=== PATIENT | female | born 1955 | race Caucasian/White ===

== ENCOUNTER 2020-05-15 12:51 | Inpatient (IN) | payer BC ==
[~2020-05-15] VITALS: Ht 160 cm; Wt 56.7 kg
[2020-05-15 13:42] VITALS: BP 131/62
[2020-05-15] MEDS ORDERED: Omnipaque-300 100ml vial INJ PRN (13:45)
--- NOTE | 2020-05-15 14:00 | NUR ---
ED Nurse Note: Pt walked into ED for lower abdominal pain for 2 weeks. Pt denies diarrhea, n&V. She is alert and ox4, ambulatory, set up on monitor. IV established.
--- NOTE | 2020-05-15 14:12 | Emergency Room Report ---
History of Present Illness General Chief Complaint: Abdominal Pain Source: Patient (Tiff Gallardo) Present Illness HPI 65 YO female presents to the ED c/o 06/05 in severity lower abdominal pain, bloating and tenderness with urgency x 2 weeks. pt. reports prior to onset she had been having diarrhea since . Pt. states she was seen by a GI specialist who did lab work and ultimately dx'd her with a UTI and placed her on 10 day course of Cipro. Pt. reports only finishing 8 days as when she followed up with urology they reported that the test was inconclusive and most likely contamination. Patient reports that she also has been receiving Botox injections in the bladder every 4 to 5 weeks. Patient states that she has an appointment for another injection next week. Patient denies dysuria. Patient reports she typically begins having urinary urgency. Patient denies fevers or chills, nausea or vomiting. She denies having watery loose bowel movements. Patient states that after taking Cipro her diarrhea did improve however she states last 2 days she has noticed that her stools been less formed. No other aggravating or relieving factors. Denies blood in the stool or black tarry stools. Pt. reports she was seen by her PCP today and instructed to come to ED for imaging as imaging was never performed for her current symptoms. She is also taking immodium PRN and hyoscyamine. (Tiff Gallardo) Allergies: Coded Allergies: No Known Allergies (Unverified , 05/15/20) COVID-19 Screening Contact w/high risk pt: No Recent Travel to affected area: No Experienced COVID-19 symptoms?: No COVID-19 Testing performed INSPECTOR AND CLERK: No (Tiff Gallardo) Patient History Past Medical History: see triage record Past Surgical History: none Now: No Reviewed Nursing Documentation: PMH: Agreed; PSxH: Agreed (Tiff Gallardo) Nursing Documentation-PMH Past Medical History: No History, Except For (Tiff Gallardo) Review of Systems All Other Systems: negative except mentioned in HPI (Tiff Gallardo) Physical Exam Vital Signs Date Time Temp Pulse Resp B/P (MAP) Pulse Ox O2 Delivery O2 Flow Rate FiO2 05/15/20 12:53 98.1 82 17 131/62 (85) 98 Room Air Sp02 EP Interpretation: reviewed, normal General Appearance: no apparent distress, alert, GCS 15, non-toxic Head: normocephalic, atraumatic Eyes: bilateral eye normal inspection, bilateral eye PERRL ENT: hearing grossly normal, normal voice Neck: full range of motion Respiratory: chest non-tender, lungs clear, normal breath sounds, speaking full sentences Cardiovascular #1: regular rate, rhythm Gastrointestinal: normal bowel sounds, soft, other - Lower abdomen is palpable tense compared to upper quadrants. no peritonitis. mild tenderness to deep palpation- diffusely in lower abdomen but primarily midline. Rectal: deferred Genitourinary: normal inspection, no CVA tenderness Musculoskeletal: back normal, normal range of motion, gait/station normal, non- tender Neurologic: alert, motor strength/tone normal, oriented x3, sensory intact, responsive, speech normal Psychiatric: judgement/insight normal Skin: normal color (Tiff Gallardo) Medical Decision Making PA Attestation Dr. Waldrop is my supervising Physician whom patient management has been discussed with. (Tiff Gallardo) Diagnostic Impression: Primary Impression: Abdominal mass Qualified Codes: R19.09 - Other intra-abdominal and pelvic swelling, mass and lump Additional Impression: UTI (urinary tract infection) Qualified Codes: N30.01 - Acute cystitis with hematuria ER Course 65 YO female presents to the ED c/o 06/05 in severity lower abdominal pain, bloating and tenderness with urgency x 2 weeks. pt. reports prior to onset she had been having diarrhea since . Pt. states she was seen by a GI specialist who did lab work and ultimately dx'd her with a UTI and placed her on 10 day course of Cipro. Pt. reports only finishing 8 days as when she followed up with urology they reported that the test was inconclusive and most likely contamination. Patient reports that she also has been receiving Botox injections in the bladder every 4 to 5 weeks. Patient states that she has an appointment for another injection next week. Patient denies dysuria. Patient reports she typically begins having urinary urgency. Patient denies fevers or chills, nausea or vomiting. She denies having watery loose bowel movements. Patient states that after taking Cipro her diarrhea did improve however she states last 2 days she has noticed that her stools been less formed. No other aggravating or relieving factors. Denies blood in the stool or black tarry stools. Pt. reports she was seen by her PCP today and instructed to come to ED for imaging as imaging was never performed for her current symptoms. She is also taking immodium PRN and hyoscyamine. Ddx considered but are not limited to Diverticulitis, acute appendicitis, diarrhea, UC, PUD, GE, pancreatitis, gallstone, ovarian torsion, fibroids , Malignancy, PID tubo-ovarian abscess. Vital signs: are WNL, pt. is afebrile H&PE are most consistent with possible UTI. PT. with abnormal physical exam of the abdomen. non-toxic in appearance. NAD. ORDERS: -CBC: WBC 12.1 - CMP: Cr 1.5 with BUN 23 - LIPASE: WNL -CRP: 4.7 ( pt. previously was 20 on outpatient lab work done by her GI) -UA: 4+ blood, 3+ leuks, TNTC WBC, with equal parts few bacteria and squamous cells. ED INTERVENTIONS: -1 Liter NS DISPOSITION: at this time pt. will be admitted to Dr. Mathis for complicated UTI and new abnormal findings of multiple intra-abdominal masses . Dr. Mathis agreed to admit the pt. and to continue pt. care management. Labs Test 05/15/20 13:50 White Blood Count 12.1 K/UL (4.8-10.8) Red Blood Count 3.97 M/UL (4.20-5.40) Hemoglobin 11.4 G/DL (12.0-16.0) Hematocrit 37.1 % (37.0-47.0) Mean Corpuscular Volume 93 FL (80-99) Mean Corpuscular Hemoglobin 28.8 PG (27.0-31.0) Mean Corpuscular Hemoglobin Concent 30.8 G/DL (32.0-36.0) Red Cell Distribution Width 12.0 % (11.6-14.8) Platelet Count 607 K/UL (150-450) Mean Platelet Volume 5.0 FL (6.5-10.1) Neutrophils (%) (Auto) 81.2 % (45.0-75.0) Lymphocytes (%) (Auto) 11.8 % (20.0-45.0) Monocytes (%) (Auto) 5.5 % (1.0-10.0) Eosinophils (%) (Auto) 0.9 % (0.0-3.0) Basophils (%) (Auto) 0.5 % (0.0-2.0) Urine Color Pale yellow Urine Appearance Slightly cloudy Urine pH 5 (4.5-8.0) Urine Specific [place] 1.015 (1.005-1.035) Urine Protein 3+ (NEGATIVE) Urine Glucose (UA) Negative (NEGATIVE) Urine Ketones Negative (NEGATIVE) Urine Blood 4+ (NEGATIVE) Urine Nitrite Negative (NEGATIVE) Urine Bilirubin Negative (NEGATIVE) Urine Urobilinogen Normal MG/DL (0.0-1.0) Urine Leukocyte Esterase 3+ (NEGATIVE) Urine RBC 5-10 /HPF (0 - 2) Urine WBC Tntc /HPF (0 - 2) Urine Squamous Epithelial Cells Few /LPF (NONE/OCC) Urine Bacteria Few /HPF (NONE) Sodium Level 137 MMOL/L (136-145) Potassium Level 3.9 MMOL/L (3.5-5.1) Chloride Level 102 MMOL/L (98-107) Carbon Dioxide Level 25 MMOL/L (21-32) Anion Gap 10 mmol/L (5-15) Blood Urea Nitrogen 23 mg/dL (7-18) Creatinine 1.5 MG/DL (0.55-1.30) Estimat Glomerular Filtration Rate 34.7 mL/min (>60) Glucose Level 86 MG/DL (74-106) Calcium Level 8.8 MG/DL (8.5-10.1) Total Bilirubin 0.2 MG/DL (0.2-1.0) Aspartate Amino Transf (AST/SGOT) 26 U/L (15-37) Alanine Aminotransferase (ALT/SGPT) 20 U/L (12-78) Alkaline Phosphatase 259 U/L (46-116) C-Reactive Protein, Quantitative 4.7 mg/dL (0.00-0.90) Total Protein 7.5 G/DL (6.4-8.2) Albumin 2.7 G/DL (3.4-5.0) Globulin 4.8 g/dL Albumin/Globulin Ratio 0.6 (1.0-2.7) Lipase 246 U/L (73-393) (Tiff Gallardo) ER Course Patient presented for abdominal pain. Patient had some CT findings concerning for possible malignancy. Patient has had some recent weight loss but has had prior history of total abdominal hysterectomy as well as ovarian removal. This occurred in 2002. Patient recently seen GI as well as urology. Patient is followed by Dr. Maya Alcantara. Due to complicated urinary tract infection patient will be admitted for further evaluation and IV antibiotics. Patient was discussed with Dr. Butler who agreed to admit the patient. Labs Test 05/15/20 13:50 White Blood Count 12.1 K/UL (4.8-10.8) Red Blood Count 3.97 M/UL (4.20-5.40) Hemoglobin 11.4 G/DL (12.0-16.0) Hematocrit 37.1 % (37.0-47.0) Mean Corpuscular Volume 93 FL (80-99) Mean Corpuscular Hemoglobin 28.8 PG (27.0-31.0) Mean Corpuscular Hemoglobin Concent 30.8 G/DL (32.0-36.0) Red Cell Distribution Width 12.0 % (11.6-14.8) Platelet Count 607 K/UL (150-450) Mean Platelet Volume 5.0 FL (6.5-10.1) Neutrophils (%) (Auto) 81.2 % (45.0-75.0) Lymphocytes (%) (Auto) 11.8 % (20.0-45.0) Monocytes (%) (Auto) 5.5 % (1.0-10.0) Eosinophils (%) (Auto) 0.9 % (0.0-3.0) Basophils (%) (Auto) 0.5 % (0.0-2.0) Urine Color Pale yellow Urine Appearance Slightly cloudy Urine pH 5 (4.5-8.0) Urine Specific [place] 1.015 (1.005-1.035) Urine Protein 3+ (NEGATIVE) Urine Glucose (UA) Negative (NEGATIVE) Urine Ketones Negative (NEGATIVE) Urine Blood 4+ (NEGATIVE) Urine Nitrite Negative (NEGATIVE) Urine Bilirubin Negative (NEGATIVE) Urine Urobilinogen Normal MG/DL (0.0-1.0) Urine Leukocyte Esterase 3+ (NEGATIVE) Urine RBC 5-10 /HPF (0 - 2) Urine WBC Tntc /HPF (0 - 2) Urine Squamous Epithelial Cells Few /LPF (NONE/OCC) Urine Bacteria Few /HPF (NONE) Sodium Level 137 MMOL/L (136-145) Potassium Level 3.9 MMOL/L (3.5-5.1) Chloride Level 102 MMOL/L (98-107) Carbon Dioxide Level 25 MMOL/L (21-32) Anion Gap 10 mmol/L (5-15) Blood Urea Nitrogen 23 mg/dL (7-18) Creatinine 1.5 MG/DL (0.55-1.30) Estimat Glomerular Filtration Rate 34.7 mL/min (>60) Glucose Level 86 MG/DL (74-106) Calcium Level 8.8 MG/DL (8.5-10.1) Total Bilirubin 0.2 MG/DL (0.2-1.0) Aspartate Amino Transf (AST/SGOT) 26 U/L (15-37) Alanine Aminotransferase (ALT/SGPT) 20 U/L (12-78) Alkaline Phosphatase 259 U/L (46-116) C-Reactive Protein, Quantitative 4.7 mg/dL (0.00-0.90) Total Protein 7.5 G/DL (6.4-8.2) Albumin 2.7 G/DL (3.4-5.0) Globulin 4.8 g/dL Albumin/Globulin Ratio 0.6 (1.0-2.7) Lipase 246 U/L (73-393) (Hilario Pedro MD) CT/MRI/US Diagnostic Results CT/MRI/US Diagnostic Results : Imaging Test Ordered: - CT Abdomen and Pelvis w. Contrast Impression " IMPRESSION: * Calcified masses within the pelvis as well as a calcified mass within the mid abdomen. Malignancy not excluded. Consider possible calcified peritoneal metastases (consider possible ovarian cancer metastases although additional etiologies to be considered). Correlation with clinical history and follow-up recommended. Some lesions may be amenable to percutaneous biopsy/sampling. * Status post hysterectomy. * Bladder wall thickening which may be related to underdistention or cystitis. Punctate focus of gas within the bladder. Possibility of fistulous connection to the bladder not excluded. * Mild left hydronephrosis without urinary tract stone. This is likely related to degree of left ureteral obstruction from the above-described calcified pelvic masses. * Low-attenuation liver lesions with imaging findings suggesting cysts or hemangiomas. Further characterization with ultrasound and/or MRI recommended given above-described findings concerning for malignancy. * 8 mm indeterminate left adrenal nodule." Per official radiology report- Please see report for specific details. (Tiff Gallardo) Last Vital Signs Date Time Temp Pulse Resp B/P (MAP) Pulse Ox O2 Delivery O2 Flow Rate FiO2 05/15/20 13:42 98.1 17 131/62 98 Room Air 05/15/20 13:42 82 (Tiff Gallardo) Disposition: ADMITTED INPATIENT Condition: Serious Tiff Gallardo May 15, 2020 14:12 Hilario Pedro MD May 15, 2020 18:53
[2020-05-15 14:21] LABS: BASOPHILS % (AUTO) 0.5 % (0.0-2.0); EOSINOPHILS % (AUTO) 0.9 % (0.0-3.0); HEMATOCRIT 37.1 % (37.0-47.0); HEMOGLOBIN 11.4 G/DL (12.0-16.0); LYMPHOCYTES % (AUTO) 11.8 % (20.0-45.0); MEAN CORPUSCULAR VOLUME 93 FL (80-99); MONOCYTES % (AUTO) 5.5 % (1.0-10.0); NEUTROPHILS % (AUTO) 81.2 % (45.0-75.0); PLATELET COUNT 607 K/UL (150-450); RED BLOOD COUNT 3.97 M/UL (4.20-5.40); WHITE BLOOD COUNT 12.1 K/UL (4.8-10.8)
[2020-05-15 14:24] LABS: APPEARANCE,URINE SLIGHTLY CLOUDY; BILIRUBIN, URINE NEGATIVE (NEGATIVE); COLOR,URINE PALE YELLOW; GLUCOSE, URINE (UA) NEGATIVE (NEGATIVE); KETONES,URINE NEGATIVE (NEGATIVE); LEUKOCYTE ESTERASE ,URINE 3+ (NEGATIVE); NITRITE,URINE NEGATIVE (NEGATIVE); PH,URINE 5 (4.5-8.0); PROTEIN,URINE 3+ (NEGATIVE); UROBILINOGEN,URINE NORMAL MG/DL (0.0-1.0)
[2020-05-15 14:38] LABS: ANION GAP 10 mmol/L (5-15); BLOOD UREA NITROGEN 23 mg/dL (7-18); CALCIUM 8.8 MG/DL (8.5-10.1); CARBON DIOXIDE 25 MMOL/L (21-32); CHLORIDE 102 MMOL/L (98-107); CREATININE 1.5 MG/DL (0.55-1.30); POTASSIUM 3.9 MMOL/L (3.5-5.1); SODIUM 137 MMOL/L (136-145)
[2020-05-15 14:54] LABS: ALANINE AMINOTRANSFERASE 20 U/L (12-78); ALBUMIN 2.7 G/DL (3.4-5.0); ALBUMIN/GLOBULIN RATIO 0.6 (1.0-2.7); ALKALINE PHOSPHATASE 259 U/L (46-116); ASPARTATE AMINO TRANSFERASE 26 U/L (15-37); BILIRUBIN,TOTAL 0.2 MG/DL (0.2-1.0)
[2020-05-15 15:42] VITALS: BP 128/65
--- NOTE | 2020-05-15 16:04 | NUR ---
HAND-OFF: Report given to Sonya Muniz RN.
--- NOTE | 2020-05-15 16:15 | NUR ---
ED Nurse Note: received report from AMIE Guerrero. Pt now placed on OB room. Pt is AOx4, awake, alert, VSS, on RA, NAD noted.
--- NOTE | 2020-05-15 17:15 | NUR ---
ED Nurse Note: offered snacks as requested by pt, PEDROD aware.
--- NOTE | 2020-05-15 17:21 | Diagnostic Imaging Report ---
Indication: Abdominal pain Technique: CT of the abdomen and pelvis utilizing automated exposure control with intravenous contrast. Venous scanning performed. Axial, sagittal and coronal reformats presented. CT dose: Total DLP 210.3 mGycm; CTDI vol 4.1 mGy Comparison: None Findings: There is dependent atelectasis noted in the lung bases. Heart is normal in size. There is no pericardial effusion. Partially imaged breast tissue is grossly symmetric. Hepatic contour is smooth. There is a 2 cm low-attenuation lesion in the right hepatic lobe with peripheral nodular enhancement most likely representing a hemangioma. A 1.4 cm low-attenuation lesion is noted at the left hepatic lobe which may represent a cyst versus hemangioma. Hepatic contour is smooth. Hepatic veins and portal veins appear patent. There are no CT evident gallstones or pericholecystic inflammatory changes. No biliary ductal dilatation. Spleen unremarkable in appearance. There is a 8mm indeterminate left adrenal nodule. Right kidney is malrotated. There is mild left-sided hydronephrosis without definitive obstructing stone. There is bladder wall thickening. Patient appears to be status post hysterectomy. There is marked abnormality in the pelvis with multiple confluent calcified masses, some which contain internal low attenuation components. Additionally there is a calcified extra luminal mass in the central abdomen, just above the level of the umbilicus, posterior and slightly inferior to the transverse colon which measures possibly 5 x 3.8 cm (axial image #42). There is no evidence of small bowel obstruction. No free intraperitoneal air. There is thickening of the wall the bladder with some punctate foci of gas within the bladder which may related to infection or potential fistulous connection the bladder. The abdominal aorta is normal in caliber. Some small mesenteric and retroperitoneal lymph nodes are noted. Nonspecific as to etiology. There is scoliosis and degenerative changes of the spine. No acute fracture identified. No destructive bone lesion. IMPRESSION: * Calcified masses within the pelvis as well as a calcified mass within the mid abdomen. Malignancy not excluded. Consider possible calcified peritoneal metastases (consider possible ovarian cancer metastases although additional etiologies to be considered). Correlation with clinical history and follow-up recommended. Some lesions may be amenable to percutaneous biopsy/sampling. * Status post hysterectomy. * Bladder wall thickening which may be related to underdistention or cystitis. Punctate focus of gas within the bladder. Possibility of fistulous connection to the bladder not excluded. * Mild left hydronephrosis without urinary tract stone. This is likely related to degree of left ureteral obstruction from the above-described calcified pelvic masses. * Low-attenuation liver lesions with imaging findings suggesting cysts or hemangiomas. Further characterization with ultrasound and/or MRI recommended given above-described findings concerning for malignancy. * 8 mm indeterminate left adrenal nodule. Additional findings as above. Salient findings discussed with treating ER clinician Sami. The CT scanner at [facility] is accredited by the [employer] and the scans are performed using protocols designed to limit radiation exposure to as low as reasonably achievable to attain images of sufficient resolution adequate for diagnostic evaluation.
[2020-05-15] MEDS ORDERED: cefTRIAXone 1 GM in NS 55 ML IVPB ONE (18:30)
--- NOTE | 2020-05-15 19:15 | NUR ---
ED Nurse Note: report given to AMIE Macdonald for continuity of care.
[2020-05-15] MEDS ORDERED: Morphine Sulfate 2mg/ml Inj(IV/IM USE ONLY) IVP ONE (20:30)
[2020-05-15] MEDS ORDERED: Ketorolac 30mg Inj IV ONE (20:45)
[2020-05-15] MEDS ORDERED: BUPROPION XL300 M1 PO (21:22)
[2020-05-15] MEDS ORDERED: ADDERAL20 MG ORAL (21:22)
[2020-05-15] MEDS ORDERED: LEXAPRO10 MG ORAL (21:22)
[2020-05-15] MEDS ORDERED: PREMARIN1.25 MG PO (21:22)
--- NOTE | 2020-05-15 21:40 | NUR ---
ED Nurse Note: Patient was admited to [facility] due to severe UTI with complications. Patient was transfered to the unit via gurney, with all belongings. Patient AAO x4, VSS at this time, pt has IV access on right forearm 20ga, saline lock.
--- NOTE | 2020-05-15 22:45 | NUR ---
NURSE NOTES: Received report from Kassy HOLLOWAY at ER. The patient is alert and oriented x4, a 65 yrs old female who came from home after having lower abdominal pain for 2 weeks and could not bear it any more. The Resp is even and unlabored and the bilateral lung sounds are all clear on auscultation. she is a good historian and can tell everything about herself. Presently she does not seem to be in any distress due to the fact that she previously received her pain medication. She will need minimal help with her ADL's. She can ambulate with minimal assistance needed. Skin is intact and warm to touch. SHE has a right fore arm 20g that was flushed with NS and is patent. Call light within reach, bed in low level and bed alarm was on . will continue to monitor
[2020-05-16] VITALS: BP 127/80
--- NOTE | 2020-05-16 00:39 | NUR ---
NURSE NOTES: Dr. Butler has been called 3 times and a text message was left on his phone together with voice messages concerning the admission status and Meds reconciliation. still awaiting call back.The patient is presently sleeping and does not seen to be in any distress with Resp even and unlabored. will continue to monitor
[2020-05-16] MEDS ORDERED: Morphine Sulfate 2mg/ml Inj(IV/IM USE ONLY) IVP PRN (02:45)
[2020-05-16] MEDS ORDERED: Ketorolac 30mg Inj IM PRN (03:00)
--- NOTE | 2020-05-16 03:01 | NUR ---
NURSE NOTES: Received a call from Dr. Butler, admission orders were all received and executed. The patient is alert and stable. still sleeping and does not appear to be in any distress at this time. will continue to monitor
[2020-05-16 04:00] VITALS: BP 114/65
[2020-05-16 07:17] LABS: HEMATOCRIT 33.6 % (37.0-47.0); HEMOGLOBIN 10.7 G/DL (12.0-16.0); MEAN CORPUSCULAR VOLUME 91 FL (80-99); PLATELET COUNT 550 K/UL (150-450); WHITE BLOOD COUNT 16.6 K/UL (4.8-10.8)
--- NOTE | 2020-05-16 07:20 | NUR ---
HAND-OFF: Report given to Lorrie HOLLOWAY.
--- NOTE | 2020-05-16 07:24 | NUR ---
NURSE NOTES: Received report from AMIE Rojas. Patient awake, alert, and sitting ip in bed eating. On room air, no signs of distress or labored breathing. IV intact, patent, and saline locked. Bed in lowest position with call light in reach. Will continue with plan of care.
--- NOTE | 2020-05-16 07:35 | NUR ---
HAND-OFF: Report given to Minsu, RR. Patient stable.
[2020-05-16 07:55] LABS: ALANINE AMINOTRANSFERASE 18 U/L (12-78); ALBUMIN 2.5 G/DL (3.4-5.0); ALBUMIN/GLOBULIN RATIO 0.6 (1.0-2.7); ALKALINE PHOSPHATASE 225 U/L (46-116); ANION GAP 8 mmol/L (5-15); ASPARTATE AMINO TRANSFERASE 26 U/L (15-37); BILIRUBIN,TOTAL 0.2 MG/DL (0.2-1.0); BLOOD UREA NITROGEN 24 mg/dL (7-18); CALCIUM 8.4 MG/DL (8.5-10.1); CARBON DIOXIDE 25 MMOL/L (21-32); CHLORIDE 102 MMOL/L (98-107); CREATININE 1.5 MG/DL (0.55-1.30); PHOSPHORUS 3.5 MG/DL (2.5-4.9); POTASSIUM 4.9 MMOL/L (3.5-5.1); SODIUM 135 MMOL/L (136-145)
[2020-05-16 08:00] VITALS: BP 129/73
[2020-05-16] MEDS: Enoxaparin 40mg Inj SUBQ SCH (08:56)
--- NOTE | 2020-05-16 09:32 | History & Physical ---
History and Physical History & Physicial seen and examined. Dictation completed on 930 hours Jose Armando Butler MD May 16, 2020 09:32
--- NOTE | 2020-05-16 09:40 | General Progress Note ---
Assessment/Plan Assessment/Plan: Full Dictation in progress 1- SIRS 2- UTI 3- Cystitis 4- Abnormal pelvic Mass Plan: start empirical abx Pending culture Oncology- ID- nephro Subjective Allergies: Coded Allergies: No Known Allergies (Unverified , 05/15/20) Objective Last 24 Hour Vital Signs Date Time Temp Pulse Resp B/P (MAP) Pulse Ox O2 Delivery O2 Flow Rate FiO2 05/16/20 08:00 97.7 86 18 129/73 (91) 95 05/16/20 04:00 98.6 79 18 114/65 (81) 99 05/16/20 00:00 97.7 76 18 127/80 (96) 96 05/15/20 22:28 Room Air 05/15/20 21:38 97.9 79 20 132/67 99 Room Air 05/15/20 21:11 98.1 05/15/20 15:42 98.1 83 16 128/65 99 Room Air 05/15/20 13:42 98.1 17 131/62 98 Room Air 05/15/20 13:42 82 17 Room Air 05/15/20 12:53 98.1 82 17 131/62 (85) 98 Room Air Intake and Output 05/15/20 05/16/20 19:00 07:00 Intake Total 1000 ml Balance 1000 ml Intake IV Total 1000 ml # Voids 1 2 Laboratory Tests 05/15/20 13:50: White Blood Count 12.1H, Red Blood Count 3.97L, Hemoglobin 11.4L, Hematocrit 37.1, Mean Corpuscular Volume 93, Mean Corpuscular Hemoglobin 28.8, Mean Corpuscular Hemoglobin Concent 30.8L, Red Cell Distribution Width 12.0, Platelet Count 607H, Mean Platelet Volume 5.0L, Neutrophils (%) (Auto) 81.2H, Lymphocytes (%) (Auto) 11.8L, Monocytes (%) (Auto) 5.5, Eosinophils (%) (Auto) 0.9, Basophils (%) (Auto) 0.5, Urine Color Pale yellow, Urine Appearance Slightly cloudy, Urine pH 5, Urine Specific [place] 1.015, Urine Protein 3+H, Urine Glucose (UA) Negative, Urine Ketones Negative, Urine Blood 4+H, Urine Nitrite Negative, Urine Bilirubin Negative, Urine Urobilinogen Normal, Urine Leukocyte Esterase 3+H, Urine RBC 5-10H, Urine WBC TntcH, Urine Squamous Epithelial Cells Few, Urine Bacteria Few, Sodium Level 137, Potassium Level 3.9 , Chloride Level 102, Carbon Dioxide Level 25, Anion Gap 10, Blood Urea Nitrogen 23H, Creatinine 1.5H, Estimat Glomerular Filtration Rate 34.7, Glucose Level 86, Calcium Level 8.8, Total Bilirubin 0.2, Aspartate Amino Transf (AST/ SGOT) 26, Alanine Aminotransferase (ALT/SGPT) 20, Alkaline Phosphatase 259H, C- Reactive Protein, Quantitative 4.7H, Total Protein 7.5, Albumin 2.7L, Globulin 4.8, Albumin/Globulin Ratio 0.6L, Lipase 246 05/16/20 06:35: White Blood Count 16.6H, Red Blood Count 3.70L, Hemoglobin 10.7L, Hematocrit 33.6L, Mean Corpuscular Volume 91, Mean Corpuscular Hemoglobin 29.0, Mean Corpuscular Hemoglobin Concent 31.9L, Red Cell Distribution Width 12.0, Platelet Count 550H, Mean Platelet Volume 5.3L, Neutrophils (%) (Auto) , Lymphocytes (%) (Auto) , Monocytes (%) (Auto) , Eosinophils (%) (Auto) , Basophils (%) (Auto) , Sodium Level 135L, Potassium Level 4.9, Chloride Level 102, Carbon Dioxide Level 25, Anion Gap 8, Blood Urea Nitrogen 24H, Creatinine 1.5H, Estimat Glomerular Filtration Rate 34.7, Glucose Level 97, Calcium Level 8.4L, Total Bilirubin 0.2, Aspartate Amino Transf (AST/SGOT) 26, Alanine Aminotransferase (ALT/SGPT) 18, Alkaline Phosphatase 225H, Total Protein 7.0, Albumin 2.5L, Globulin 4.5, Albumin/Globulin Ratio 0.6L, Neutrophils % (Manual) [Pending], Lymphocytes % (Manual) [Pending], Platelet Estimate [Pending], Platelet Morphology [Pending], Hemoglobin A1c 6.0, Phosphorus Level 3.5, Magnesium Level 2.1, Thyroid Stimulating Hormone (TSH) 2.070 Height (Feet): 5 Height (Inches): 3.00 Weight (Pounds): 125 Jose Armando Butler MD May 16, 2020 09:40
[2020-05-16 12:00] VITALS: BP 126/76
--- NOTE | 2020-05-16 13:56 | Infectious Diseases Prog Note ---
Assessment/Plan Problems: (1) UTI (urinary tract infection) Assessment & Plan: WITH AIR IN THE BLADDER AND LEFT URETER HYDRONEPHROSIS WILL UPGRADE HER ANTIBIOTICS TO ZOSYN PENDING URINE CULTURE (2) Abdominal mass Assessment & Plan: rule out metastatic cancer may need biopsy from 1 of those masses to confirm (3) Pelvic mass Assessment & Plan: with calcification rule out metastatic cancer , will need biopsy to confirm and tumor markers recommend oncology eval (4) Leukocytosis Assessment & Plan: RULE OUT SEPSIS WILL SEND BLOOD CULTURES 2 AND START PATIENT ON zOSYN EMPIRICALLY Subjective Allergies: Coded Allergies: No Known Allergies (Unverified , 05/15/20) Objective Vital Signs Last 24 Hour Vital Signs Date Time Temp Pulse Resp B/P (MAP) Pulse Ox O2 Delivery O2 Flow Rate FiO2 05/16/20 09:00 Room Air 05/16/20 08:00 97.7 86 18 129/73 (91) 95 05/16/20 04:00 98.6 79 18 114/65 (81) 99 05/16/20 00:00 97.7 76 18 127/80 (96) 96 05/15/20 22:28 Room Air 05/15/20 21:38 97.9 79 20 132/67 99 Room Air 05/15/20 21:11 98.1 05/15/20 15:42 98.1 83 16 128/65 99 Room Air Height (Feet): 5 Height (Inches): 3.00 Weight (Pounds): 125 Microbiology Date/Time Source Procedure Growth Status 05/15/20 13:50 Urine,Clean Catch Urine Culture - Preliminary NO GROWTH Resulted Laboratory Tests Test 05/16/20 06:35 White Blood Count 16.6 K/UL (4.8-10.8) H Red Blood Count 3.70 M/UL (4.20-5.40) L Hemoglobin 10.7 G/DL (12.0-16.0) L Hematocrit 33.6 % (37.0-47.0) L Mean Corpuscular Volume 91 FL (80-99) Mean Corpuscular Hemoglobin 29.0 PG (27.0-31.0) Mean Corpuscular Hemoglobin Concent 31.9 G/DL (32.0-36.0) L Red Cell Distribution Width 12.0 % (11.6-14.8) Platelet Count 550 K/UL (150-450) H Mean Platelet Volume 5.3 FL (6.5-10.1) L Neutrophils (%) (Auto) % (45.0-75.0) Lymphocytes (%) (Auto) % (20.0-45.0) Monocytes (%) (Auto) % (1.0-10.0) Eosinophils (%) (Auto) % (0.0-3.0) Basophils (%) (Auto) % (0.0-2.0) Differential Total Cells Counted 100 Neutrophils % (Manual) 79 % (45-75) H Lymphocytes % (Manual) 10 % (20-45) L Monocytes % (Manual) 10 % (1-10) Eosinophils % (Manual) 1 % (0-3) Basophils % (Manual) 0 % (0-2) Band Neutrophils 0 % (0-8) Platelet Estimate Adequate Platelet Morphology Normal Hypochromasia 1+ Anisocytosis 1+ Sodium Level 135 MMOL/L (136-145) L Potassium Level 4.9 MMOL/L (3.5-5.1) Chloride Level 102 MMOL/L (98-107) Carbon Dioxide Level 25 MMOL/L (21-32) Anion Gap 8 mmol/L (5-15) Blood Urea Nitrogen 24 mg/dL (7-18) H Creatinine 1.5 MG/DL (0.55-1.30) H Estimat Glomerular Filtration Rate 34.7 mL/min (>60) Glucose Level 97 MG/DL (74-106) Hemoglobin A1c 6.0 % (4.3-6.0) Calcium Level 8.4 MG/DL (8.5-10.1) L Phosphorus Level 3.5 MG/DL (2.5-4.9) Magnesium Level 2.1 MG/DL (1.8-2.4) Total Bilirubin 0.2 MG/DL (0.2-1.0) Aspartate Amino Transf (AST/SGOT) 26 U/L (15-37) Alanine Aminotransferase (ALT/SGPT) 18 U/L (12-78) Alkaline Phosphatase 225 U/L (46-116) H Total Protein 7.0 G/DL (6.4-8.2) Albumin 2.5 G/DL (3.4-5.0) L Globulin 4.5 g/dL Albumin/Globulin Ratio 0.6 (1.0-2.7) L Thyroid Stimulating Hormone (TSH) 2.070 uiU/mL (0.358-3.740) Current Medications Medications (Trade) Dose Ordered Sig/Lyubov Route PRN Reason Start Time Stop Time Status Last Admin Dose Admin Ceftriaxone Sodium 2 gm/ Dextrose 55 ml @ 110 mls/hr Q24H IVPB 05/16/20 18:00 05/23/20 17:59 Enoxaparin Sodium (Lovenox) 40 mg DAILY SUBQ 05/16/20 09:00 08/14/20 08:59 05/16/20 08:56 Famotidine (Pepcid) 40 mg DAILY ORAL 05/16/20 09:00 08/14/20 08:59 05/16/20 08:56 Iohexol (OMNIPAQUE-300 100ml) 100 ml NOW PRN INJ Radiology Procedure 05/15/20 13:45 05/17/20 13:33 Ketorolac Tromethamine (Toradol 30mg) 15 mg Q12H PRN IM Moderate Pain (Pain Scale 4-6) 05/16/20 03:00 05/21/20 02:59 05/16/20 08:55 Morphine Sulfate (Morphine Sulfate) 2 mg Q4H PRN IVP For Pain 05/16/20 02:45 05/23/20 02:44 Jasen Leonard M.D. May 16, 2020 13:56
--- NOTE | 2020-05-16 14:14 | History and Physical Report ---
DATE OF ADMISSION: 05/15/2020 SOURCE OF INFORMATION: The patient and EMR. HISTORY OF PRESENT ILLNESS: The patient is a pleasant 65-year-old female, who presented to the hospital after a couple of weeks of diarrhea. Given a couple of failed outpatient treatments, the patient got an imaging, which is suspicious for malignancy and the patient admitted to control the abdominal pain. Denies vomitus, constipation. Positive for mild abdominal pain. Positive for weight loss. No fever. No chills. REVIEW OF SYSTEMS: All 12 elements of review of systems reviewed. Pertinent positive and negative as above. ALLERGIES: NKDA. PAST MEDICAL AND SURGICAL HISTORY: Including psychiatric disorder, including the hormone therapy. SOCIAL HISTORY: The patient is , no children. 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 FAMILY HISTORY: The patient reported that has a history of cancer malignancy in her sister and brother. CURRENT HOSPITAL MEDICATIONS: Including ketorolac, morphine p.r.n. PHYSICAL EXAMINATION: VITAL SIGNS: Blood pressure 130/80, temperature 98.2, pulse oximetry 98% on room air, respiratory rate 18. HEAD AND NECK: Atraumatic and normocephalic. CHEST: Clear to auscultation. HEART: S1, S2. Regular rate and rhythm. ABDOMEN: Protuberant, soft. Negative for rebound tenderness. MUSCULOSKELETAL: No gross focal motor deficit. NEUROLOGIC: The patient is awake, alert, and oriented x3. LABORATORY DATA: Dated May 15, 2020, WBC 12.1, hemoglobin 11.4, platelet count 607,000. Sodium 137, potassium 3.9, creatinine 1.5. Albumin of 2.7. UA shows many wbc's, positive for blood and protein. Alkaline phosphatase of 260. IMAGING: Abdomen and pelvis CT scan dated May 15, 2020 shows calcified masses in the pelvis and mid abdomen, cystitis, positive for lesion in the abdomen. ASSESSMENT: 1. Abdominal pain. 2. SIRS. 3. UTI. 4. Multiple abdominal mass, highly suspicious of malignancy. 5. Cystitis, highly suspicious for fistulization. 6. Abnormal liver lesion, suspicious of metastasis. PLAN OF CARE: We will proceed with the Admission to the medical floor. We will consult GI and Oncology, Nephrology. We will start the patient on empiric antibiotic. Pending the cultures. The time of this dictation does not reflect the actual time of encounter. Jose Armando Butler M.D. DR: MILY JOB#: [id number] CC: MARCEL
[2020-05-16] MEDS: Piperacillin/Tazobactam 3.375 GM in NS 110 ML IVPB SCH ×2 (15:14→21:43)
[2020-05-16 16:00] VITALS: BP 123/78
--- NOTE | 2020-05-16 16:24 | NUR ---
CASE MANAGEMENT: INITIAL REVIEW 65YR OLD FEMALE WALKED IN FROM HOME CC: LOWER ABD PAIN X2 WEEKS; DIARRHEA SINCE ADOLFO SI:COMPLICATED URINARY TRACT INFECTION . ABDOMINAL MASS 98.0 82 17 131/62 98% ION RA WBC 12.1 PLT 607 BUN/CREAT 23/1.5 ALKP 259 ALB 2.7 IS:IVF NS BOLUS X1 CT Abdomen Pelvis w/Contrast-Calcified masses within the pelvis as well as a calcified mass within the mid abdomen. Malignancy not excluded.Bladder wall thickening which may be related to underdistention or cystitis.Punctate focus of gas within the bladder. Possibility of fistulous connection to the bladder not excluded. \: 3E MED SURG UNIT DCP: HOME WHEN STABLE CASE MANAGEMENT: REVIEW 05/16/20 SI:COMPLICATED URINARY TRACT INFECTION . ABDOMINAL MASS 98.0 82 18 126/76 96% ON RA WBC 16.6 PLT 550 BUN/CREAT 24/1.5 CA+ 8.4 ALKP 225 ALB 2.5 IS:IV ZOSYN TID LOVENOX SQ QD IV MORPHINE SULFATE Q4/PRN TORADOL IM BID \: 3E MED SURG UNIT DCP: HOME WHEN STABLE PLAN: BLOOD CX-PENDING NEPHRO CONSULT ONCOLOGY CONSULT GI CONSULT
--- NOTE | 2020-05-16 16:36 | General Progress Note ---
Assessment/Plan Assessment/Plan: GI Consultation Dictated Pelvic malignancy, suspicious for soft tissue sarcoma Recommend CT guided FNA for tissue dx Thank you Candy Meredith MD Subjective Allergies: Coded Allergies: No Known Allergies (Unverified , 05/15/20) Objective Last 24 Hour Vital Signs Date Time Temp Pulse Resp B/P (MAP) Pulse Ox O2 Delivery O2 Flow Rate FiO2 05/16/20 12:00 98.0 82 18 126/76 (93) 96 05/16/20 09:00 Room Air 05/16/20 08:00 97.7 86 18 129/73 (91) 95 05/16/20 04:00 98.6 79 18 114/65 (81) 99 05/16/20 00:00 97.7 76 18 127/80 (96) 96 05/15/20 22:28 Room Air 05/15/20 21:38 97.9 79 20 132/67 99 Room Air 05/15/20 21:11 98.1 Intake and Output 05/15/20 05/16/20 19:00 07:00 Intake Total 1000 ml Balance 1000 ml Intake IV Total 1000 ml # Voids 1 2 Laboratory Tests 05/16/20 06:35: White Blood Count 16.6H, Red Blood Count 3.70L, Hemoglobin 10.7L, Hematocrit 33.6L, Mean Corpuscular Volume 91, Mean Corpuscular Hemoglobin 29.0, Mean Corpuscular Hemoglobin Concent 31.9L, Red Cell Distribution Width 12.0, Platelet Count 550H, Mean Platelet Volume 5.3L, Neutrophils (%) (Auto) , Lymphocytes (%) (Auto) , Monocytes (%) (Auto) , Eosinophils (%) (Auto) , Basophils (%) (Auto) , Differential Total Cells Counted 100, Neutrophils % ( Manual) 79H, Lymphocytes % (Manual) 10L, Monocytes % (Manual) 10, Eosinophils % (Manual) 1, Basophils % (Manual) 0, Band Neutrophils 0, Platelet Estimate Adequate, Platelet Morphology Normal, Hypochromasia 1+, Anisocytosis 1+, Sodium Level 135L, Potassium Level 4.9, Chloride Level 102, Carbon Dioxide Level 25, Anion Gap 8, Blood Urea Nitrogen 24H, Creatinine 1.5H, Estimat Glomerular Filtration Rate 34.7, Glucose Level 97, Hemoglobin A1c 6.0, Calcium Level 8.4L, Phosphorus Level 3.5, Magnesium Level 2.1, Total Bilirubin 0.2, Aspartate Amino Transf (AST/SGOT) 26, Alanine Aminotransferase (ALT/SGPT) 18, Alkaline Phosphatase 225H, Total Protein 7.0, Albumin 2.5L, Globulin 4.5, Albumin/ Globulin Ratio 0.6L, Thyroid Stimulating Hormone (TSH) 2.070 Height (Feet): 5 Height (Inches): 3.00 Weight (Pounds): 125 Candy Meredith MD May 16, 2020 16:36
--- NOTE | 2020-05-16 16:38 | Consultation ---
History of Present Illness General Date patient seen: May 16, 2020 Reason for Hospitalization: Abdominal Pain Present Illness HPI This is a very pleasant 65 year old female who presents to the ED at [facility] complaining of 7/10 in severity lower abdominal pain, bloating and tenderness with urgency x 2 weeks. She reports prior to onset she had been having diarrhea since 2018. Pt. states she was seen by a GI specialist who did lab work and ultimately dx'd her with a UTI and placed her on 10 day course of Cipro. Pt. reports only finishing 8 days as when she followed up with urology they reported that the test was inconclusive and most likely contamination. Patient reports that she also has been receiving Botox injections in the bladder every 4 to 5 weeks. Patient states that she has an appointment for another injection next week. Patient denies dysuria. Patient reports she typically begins having urinary urgency. Patient denies fevers or chills, nausea or vomiting. She denies having watery loose bowel movements. Patient states that after taking Cipro her diarrhea did improve however she states last 2 days she has noticed that her stools been less formed. No other aggravating or relieving factors. Denies blood in the stool or black tarry stools. Pt. reports she was seen by her PCP recently and instructed to come to ED for imaging as imaging was never performed for her current symptoms. She is also taking immodium PRN and hyoscyamine. In ED had CT performed and demonstrated mass. surgery called to evaluate and assist with care. Patient seen, patient evaluated, chart reviewed. Patient states she has had cramping pain 7 out of 10 which she does not believe is very severe but is a strong cramp for a few weeks now along with the diarrhea since . No nausea vomiting fever chills. Is concerned and potentially understands and believes she has a mass but is unsure what to do at this time. She had a history of hysterectomy bilateral salpingo- oophorectomy for fibroids in 2002. No other history known to her of any significant concern Allergies: Coded Allergies: No Known Allergies (Unverified , 05/15/20) COVID-19 Screening Contact w/high risk pt: No Recent Travel to affected area: No Experienced COVID-19 symptoms?: No Medication History Scheduled Dextroamphetamine/Amphetamine (Adderall 20 mg Tablet), 20 MG ORAL DAILY, ( Reported) Escitalopram Oxalate* (Lexapro*), 10 MG ORAL DAILY, (Reported) Miscellaneous Medications Bupropion HCl (Bupropion Xl), 300 MG PO, (Reported) Estrogens,Conjugated (Premarin), 1.25 MG PO, (Reported) Patient History History Provided By: Medical Record, PMD Healthcare decision maker Resuscitation status Advanced Directive on File Past Medical/Surgical History Past Medical/Surgical History: (1) Abdominal mass (2) UTI (urinary tract infection) (3) Pelvic mass (4) Leukocytosis Review of Systems Review of Symptoms General ROS: no weight loss or fever Psychological ROS: no depression or mood changes, no memory loss Ophthalmic ROS: no visual changes or eye irritation ENT ROS: no nasal congestion, hearing loss, dizziness Allergy and Immunology ROS: no allergic symptoms or urticaria Hematological and Lymphatic ROS: no swollen glands, unusual bleeding or bruising Endocrine ROS: no polyuria, polydipsia, weight changes, temperature intolerance Respiratory ROS: no cough, shortness of breath, or wheezing Cardiovascular ROS: no chest pain or dyspnea on exertion Gastrointestinal ROS: denies abdominal pain, bright red blood in stool. Musculoskeletal ROS: no myalgias or arthralgias Neurological ROS: no TIA or stroke symptoms Dermatological ROS: no new or changing skin lesions, rashes or pruritis Physical Exam Physical Exam General appearance: alert, cooperative, no distress, appears stated age Head: Normocephalic, without obvious abnormality, atraumatic Eyes: conjunctivae/corneas clear. PERRL, EOM's intact. Fundi benign Throat: Lips, mucosa, and tongue normal. Teeth and gums normal Neck: supple, symmetrical, trachea midline, no adenopathy, thyroid: not enlarged, symmetric, no tenderness/mass/nodules, no carotid bruit and no JVD Lungs: clear to auscultation bilaterally Heart: regular rate and rhythm, S1, S2 normal, no murmur, click, rub or gallop Abdomen: soft, non-tender. Bowel sounds normal. No masses, no organomegaly Extremities: extremities normal, atraumatic, no cyanosis or edema Pulses: 2+ and symmetric Skin: Skin color, texture, turgor normal. No rashes or lesions Neurologic: Grossly normal Last 24 Hour Vital Signs Date Time Temp Pulse Resp B/P (MAP) Pulse Ox O2 Delivery O2 Flow Rate FiO2 05/16/20 12:00 98.0 82 18 126/76 (93) 96 05/16/20 09:00 Room Air 05/16/20 08:00 97.7 86 18 129/73 (91) 95 05/16/20 04:00 98.6 79 18 114/65 (81) 99 05/16/20 00:00 97.7 76 18 127/80 (96) 96 05/15/20 22:28 Room Air 05/15/20 21:38 97.9 79 20 132/67 99 Room Air 05/15/20 21:11 98.1 Intake and Output 05/15/20 05/16/20 19:00 07:00 Intake Total 1000 ml Balance 1000 ml Intake IV Total 1000 ml # Voids 1 2 Laboratory Tests Test 05/16/20 06:35 White Blood Count 16.6 K/UL (4.8-10.8) H Red Blood Count 3.70 M/UL (4.20-5.40) L Hemoglobin 10.7 G/DL (12.0-16.0) L Hematocrit 33.6 % (37.0-47.0) L Mean Corpuscular Volume 91 FL (80-99) Mean Corpuscular Hemoglobin 29.0 PG (27.0-31.0) Mean Corpuscular Hemoglobin Concent 31.9 G/DL (32.0-36.0) L Red Cell Distribution Width 12.0 % (11.6-14.8) Platelet Count 550 K/UL (150-450) H Mean Platelet Volume 5.3 FL (6.5-10.1) L Neutrophils (%) (Auto) % (45.0-75.0) Lymphocytes (%) (Auto) % (20.0-45.0) Monocytes (%) (Auto) % (1.0-10.0) Eosinophils (%) (Auto) % (0.0-3.0) Basophils (%) (Auto) % (0.0-2.0) Differential Total Cells Counted 100 Neutrophils % (Manual) 79 % (45-75) H Lymphocytes % (Manual) 10 % (20-45) L Monocytes % (Manual) 10 % (1-10) Eosinophils % (Manual) 1 % (0-3) Basophils % (Manual) 0 % (0-2) Band Neutrophils 0 % (0-8) Platelet Estimate Adequate Platelet Morphology Normal Hypochromasia 1+ Anisocytosis 1+ Sodium Level 135 MMOL/L (136-145) L Potassium Level 4.9 MMOL/L (3.5-5.1) Chloride Level 102 MMOL/L (98-107) Carbon Dioxide Level 25 MMOL/L (21-32) Anion Gap 8 mmol/L (5-15) Blood Urea Nitrogen 24 mg/dL (7-18) H Creatinine 1.5 MG/DL (0.55-1.30) H Estimat Glomerular Filtration Rate 34.7 mL/min (>60) Glucose Level 97 MG/DL (74-106) Hemoglobin A1c 6.0 % (4.3-6.0) Calcium Level 8.4 MG/DL (8.5-10.1) L Phosphorus Level 3.5 MG/DL (2.5-4.9) Magnesium Level 2.1 MG/DL (1.8-2.4) Total Bilirubin 0.2 MG/DL (0.2-1.0) Aspartate Amino Transf (AST/SGOT) 26 U/L (15-37) Alanine Aminotransferase (ALT/SGPT) 18 U/L (12-78) Alkaline Phosphatase 225 U/L (46-116) H Total Protein 7.0 G/DL (6.4-8.2) Albumin 2.5 G/DL (3.4-5.0) L Globulin 4.5 g/dL Albumin/Globulin Ratio 0.6 (1.0-2.7) L Thyroid Stimulating Hormone (TSH) 2.070 uiU/mL (0.358-3.740) Height (Feet): 5 Height (Inches): 3.00 Weight (Pounds): 125 Medications Current Medications Medications (Trade) Dose Ordered Sig/Lyubov Route PRN Reason Start Time Stop Time Status Last Admin Dose Admin Enoxaparin Sodium (Lovenox) 40 mg DAILY SUBQ 05/16/20 09:00 08/14/20 08:59 05/16/20 08:56 Famotidine (Pepcid) 40 mg DAILY ORAL 05/16/20 09:00 08/14/20 08:59 05/16/20 08:56 Iohexol (OMNIPAQUE-300 100ml) 100 ml NOW PRN INJ Radiology Procedure 05/15/20 13:45 05/17/20 13:33 Ketorolac Tromethamine (Toradol 30mg) 15 mg Q12H PRN IM Moderate Pain (Pain Scale 4-6) 05/16/20 03:00 05/21/20 02:59 05/16/20 08:55 Morphine Sulfate (Morphine Sulfate) 2 mg Q4H PRN IVP For Pain 05/16/20 02:45 05/23/20 02:44 05/16/20 15:16 Piperacillin Sod/ Tazobactam Sod 3.375 gm/Sodium Chloride 110 ml @ 27.5 mls/hr EVERY 8 HOURS IVPB 05/16/20 15:00 05/21/20 14:59 05/16/20 15:14 Assessment/Plan Problem List: (1) Abdominal mass Assessment & Plan: Patient not have stated history as per her of any abnormalities in her abdomen. States mainly diarrhea and cramping as stated in HPI. Denies any nausea vomiting fever chills. Is tolerating diet but has diarrhea which makes her concerned. Labs noted and reviewed. CT reviewed. I discussion with patient regarding CT findings and explained necessity of potential biopsy. There is no acute surgical intervention necessary at this time but further imaging and work-up is necessary given the significant amount of masses identified within the abdomen. Strong possibility metastatic disease. Patient states that she has care providers at [facility] and was recently contacted her friend in the chief of cardiothoracic surgery to get her transported for the remainder of her care there. From surgical standpoint she is safe for transfer. Does need further work-up and imaging and biopsy and follow-up but that can be done at [facility] or outpatient. There is dependent atelectasis noted in the lung bases. Heart is normal in size. There is no pericardial effusion. Partially imaged breast tissue is grossly symmetric. Hepatic contour is smooth. There is a 2 cm low-attenuation lesion in the right hepatic lobe with peripheral nodular enhancement most likely representing a hemangioma. A 1.4 cm low-attenuation lesion is noted at the left hepatic lobe which may represent a cyst versus hemangioma. Hepatic contour is smooth. Hepatic veins and portal veins appear patent. There are no CT evident gallstones or pericholecystic inflammatory changes. No biliary ductal dilatation. Spleen unremarkable in appearance. There is a 8mm indeterminate left adrenal nodule. Right kidney is malrotated. There is mild left-sided hydronephrosis without definitive obstructing stone. There is bladder wall thickening. Patient appears to be status post hysterectomy. There is marked abnormality in the pelvis with multiple confluent calcified masses, some which contain internal low attenuation components. Additionally there is a calcified extra luminal mass in the central abdomen, just above the level of the umbilicus, posterior and slightly inferior to the transverse colon which measures possibly 5 x 3.8 cm (axial image #42). There is no evidence of small bowel obstruction. No free intraperitoneal air. There is thickening of the wall the bladder with some punctate foci of gas within the bladder which may related to infection or potential fistulous connection the bladder. The abdominal aorta is normal in caliber. Some small mesenteric and retroperitoneal lymph nodes are noted. Nonspecific as to etiology. There is scoliosis and degenerative changes of the spine. No acute fracture identified. No destructive bone lesion. IMPRESSION: * Calcified masses within the pelvis as well as a calcified mass within the mid abdomen. Malignancy not excluded. Consider possible calcified peritoneal metastases (consider possible ovarian cancer metastases although additional etiologies to be considered). Correlation with clinical history and follow-up recommended. Some lesions may be amenable to percutaneous biopsy/sampling. * Status post hysterectomy. * Bladder wall thickening which may be related to underdistention or cystitis. Punctate focus of gas within the bladder. Possibility of fistulous connection to the bladder not excluded. * Mild left hydronephrosis without urinary tract stone. This is likely related to degree of left ureteral obstruction from the above-described calcified pelvic masses. * Low-attenuation liver lesions with imaging findings suggesting cysts or hemangiomas. Further characterization with ultrasound and/or MRI recommended given above-described findings concerning for malignancy. * 8 mm indeterminate left adrenal nodule. ICD Codes: R19.00 - Intra-abdominal and pelvic swelling, mass and lump, unspecified site SNOMED: [id number] Qualifiers: Qualified Codes: R19.09 - Other intra-abdominal and pelvic swelling, mass and lump (2) UTI (urinary tract infection) ICD Codes: N39.0 - Urinary tract infection, site not specified SNOMED: 85256287 Qualifiers: Qualified Codes: N30.01 - Acute cystitis with hematuria (3) Pelvic mass ICD Codes: R19.00 - Intra-abdominal and pelvic swelling, mass and lump, unspecified site SNOMED: 18967950 (4) Leukocytosis ICD Codes: D72.829 - Elevated white blood cell count, unspecified SNOMED: [id number], [id number] Moody Mayer May 16, 2020 16:38
--- NOTE | 2020-05-16 17:30 | NUR ---
NURSE NOTES: Called MD regarding pain medication and nausea pain medication for patient. Left message. Awaiting response.
[2020-05-16] MEDS ORDERED: cefTRIAXone 2 GM in D5W 55 ML IVPB SCH (18:00)
--- NOTE | 2020-05-16 18:56 | NUR ---
NURSE NOTES: Made a follow up call to Dr. Butler regarding pain and nausea medication. No response. Charge nurse aware.
--- NOTE | 2020-05-16 19:43 | NUR ---
NURSE NOTES: Patient awake, alert, and verbally responsive to let her needs known. Breathing unlabored on room air without distress. Febrile and verbalized nausea and pain. will provide pharmacological and non-pharmacological interventions. IV noted on right wrist intact and patent. Bedside commode placed in the room. Bed placed at the lowest with alarm, brake, and siderails up for patient safety. Call light placed within reach. Will continue to monitor and provide care as ordered.
[2020-05-16] MEDS ORDERED: Hydromorphone 0.5mg/0.5ml inj IVP PRN (19:45)
[2020-05-16 20:00] VITALS: BP 145/74
--- NOTE | 2020-05-16 20:20 | NUR ---
NURSE NOTES: patient temperature reading 100.2. provided cooling measures and Tylenol 650 mg PO. Will continue to monitor.
--- NOTE | 2020-05-16 21:00 | NUR ---
NURSE NOTES: patient temperature reading 99.1 orally at this time. Will continue to monitor.
[2020-05-16] MEDS ORDERED: NS 275ml ONE (21:33)
[2020-05-16] MEDS ORDERED: Tubing IV Secondary IV ONE (21:33)
[2020-05-16] MEDS: Morphine Sulfate 2mg/ml Inj(IV/IM USE ONLY) IVP PRN (21:44)
--- NOTE | 2020-05-16 23:00 | Consultation ---
DATE OF CONSULTATION: 05/16/2020 INFECTIOUS DISEASE CONSULTATION CONSULTING PHYSICIAN: Jasen Leonard MD. REQUESTING PHYSICIAN: Jose Armando Butler MD. REASON FOR CONSULTATION: Urinary tract infection, leukocytosis, possible sepsis, recommendation for antibiotics treatment. HISTORY OF PRESENT ILLNESS: The patient is a 65-year-old female with past medical history of hysterectomy with ovarian removal, UTI, presented to [facility] Emergency Room with persistent lower abdominal pain for the last three weeks with bloating sensation. She described it as a dull deep ache, 7/10. The patient also had diarrhea since and she has been evaluated by GI as an outpatient and received 10 days of Cipro course for urinary tract infection with minimal improvement in her symptoms. The patient also has been followed by Urology as an outpatient and receiving Botox injection in the bladder every 4 to 5 weeks and she admitted having urinary symptoms with dysuria and urinary urgency. Denied any fever or chills. No nausea or vomiting. No significant diarrhea, but she had multiple bowel movements, which are loose. She also had dark cloudy urine with possible fecal material passing with her urine. She denied any significant weight loss, but has low appetite over the last couple of weeks. In the ER, her temperature was 98.1, pulse 82, respirations 17, blood pressure 131/62, saturating 98% on room air. Laboratory work revealed urine tract infection and CT scan of the abdomen and pelvis showed multiple calcified peritoneal nodule and pelvic masses concerning for metastases. So, the patient was started on ceftriaxone for urinary tract infection coverage and Infectious Disease consultation was requested for antibiotics treatment and further management. REVIEW OF SYSTEMS: A 14-point of system reviewed were all negative apart from the one I mentioned above in my History and Physical. PAST MEDICAL HISTORY: Significant for UTI, diarrhea, hysterectomy. PAST SURGICAL HISTORY: She had hysterectomy. SOCIAL HISTORY: The patient works for [employer]. Denied using any drugs, tobacco, or alcohol. She lives at home. Family history noncontributory. ALLERGIES: She has no known drug allergies. MEDICATIONS: She is on ceftriaxone. LABORATORY DATA: Showed white count of 16.6, hemoglobin of 10.7, platelet count of 550. BUN of 24, creatinine of 1.5. AST of 26, ALT of 18, alk phosphatase of 225. Urinalysis showed +3 leukocyte esterase, WBC too numerous to count and few bacteria. Microbiology, urine culture so far showed no growth. IMAGING: Abdominal and pelvis CT scan with contrast showed calcified masses within the pelvis as well as calcified mass within the midabdomen, malignancy not excluded. Consider calcified peritoneal metastases status post hysterectomy, bladder wall thickening, mild left hydronephrosis without urinary tract stone, possible left ureteral obstruction, liver lesion with imaging suggestive of cyst or hemangiomas. PHYSICAL EXAMINATION: VITAL SIGNS: Temperature 98, pulse 82, respirations 18, blood pressure 126/76, saturation 96% on room air. GENERAL: Middle-aged female, malnourished, lying in bed, awake, alert, responsive, not in distress. HEENT: Normocephalic and atraumatic. Pupils are reactive to light equally. Pale sclerae. Dry oral mucosa. No exudate or thrush. NECK: Supple. No lymphadenopathy. CARDIOVASCULAR: Regular rate and rhythm. No murmur or gallop. LUNGS: Clear bilaterally. Diminished breathing sounds at the bases. Normal breathing efforts. ABDOMEN: Soft, distended, tender with diminished bowel sounds. No rebound. No ascites. EXTREMITIES: No edema or cyanosis. No clubbing. SKIN: No rash. No hives. No ulceration. ASSESSMENT AND RECOMMENDATION: 1. Leukocytosis, rule out sepsis. We will send blood cultures x2 and upgrade antibiotics to Zosyn, empirically pending culture. 2. Urinary tract infection with air in the bladder and left ureteral hydronephrosis, rule out fistula. We will upgrade antibiotics to Zosyn. Recommend Urology evaluation. 3. Abdominal mass, rule out metastatic cancer, may need biopsy from 1 of those masses to confirm. 4. Pelvic mass with calcification, rule out metastatic cancer. We will need biopsy also to confirm and tumor markers for further evaluation. Recommend Oncology eval. Thank you for the consult. ID will continue to follow. Please feel free to call with any question. Jasen Leonard M.D. DR: BRIDGET JOB#: [id number] CC:
[2020-05-17] VITALS: BP 137/62
--- NOTE | 2020-05-17 01:45 | Consultation ---
DATE OF CONSULTATION: 05/16/2020 GASTROENTEROLOGY CONSULTATION CHIEF COMPLAINT: I was asked to see this patient for evaluation of abnormal CT scan. HISTORY OF PRESENT ILLNESS: The patient is a 65-year-old white woman without significant past medical history who comes into the hospital due to a 3-week history of abdominal pain, which is diffuse. The patient reports that she has had some diarrhea problems since the [place] of last year, but this resolved a few weeks ago. About 3 weeks ago, however, she had lower abdominal pain. She had no nausea, vomiting, or hematochezia. She came to the emergency room where a CT scan showed calcified large pelvic masses with a hint of air in the urinary bladder. The patient has not had a colonoscopy for about 13 years or so, and she was actually scheduled for an examination about a week or two as an outpatient. She has been on the antibiotics for urinary tract infection recently. PAST MEDICAL HISTORY: Otherwise unremarkable. PAST SURGICAL HISTORY: Status post appendectomy, status post bilateral hysterectomy and salpingo-oophorectomy. FAMILY HISTORY: Noncontributory. SOCIAL HISTORY: The patient is . She works at [employer] and actually requests to be transferred there for the rest of the care. REVIEW OF SYSTEMS: Otherwise negative. PHYSICAL EXAMINATION: GENERAL: A pleasant white woman who was seen with her at bedside. HEENT: Normocephalic and atraumatic. Sclerae anicteric. Oropharynx clear. NECK: Supple. CHEST: Clear to auscultation. CARDIOVASCULAR: Revealed a regular rhythm and rate. ABDOMEN: Soft and mildly distended. There is definite fullness and matted like effect to the lower abdomen consistent with history of peritoneal tumor, which is seen on the CT scan. EXTREMITIES: Revealed no edema. NEUROLOGIC: Nonfocal. LABORATORY DATA: Noted. ASSESSMENT: This patient presents with abdominal pain as well as the large mass is seen in the abdomen. The small amount of air seen in the urinary bladder may be indicative of fistula since the patient denies any recent instrumentation. This pattern of large calcific mass in the pelvis is not typical of GI malignancy. Since the patient also had her ovaries removed then presumably the mass may be a form of sarcoma. The most perfect diagnosis would be a CT-guided fine-needle aspiration to achieve tissue to guide further treatment. The patient states that she wants to go to [facility] [employer], and I have, therefore, not written for the fine needle biopsy since this would be best done at the final treatment institution. The tumor markers can be checked, and I believe the Oncology will be contacting soon the patient as well. RECOMMENDATIONS: Per above discussion and per orders written in the chart. Thank you for asking me to participate in the care of this patient. Candy Meredith M.D. DR: CHRIS JOB#: [id number] CC:
[2020-05-17 04:00] VITALS: BP 128/64
[2020-05-17] MEDS: Piperacillin/Tazobactam 3.375 GM in NS 110 ML IVPB SCH ×3 (05:27→21:51)
--- NOTE | 2020-05-17 06:16 | Consultation ---
History of Present Illness General Chief Complaint: Abdominal Pain Present Illness Allergies: Coded Allergies: No Known Allergies (Unverified , 05/15/20) Medication History Scheduled Dextroamphetamine/Amphetamine (Adderall 20 mg Tablet), 20 MG ORAL DAILY, ( Reported) Escitalopram Oxalate* (Lexapro*), 10 MG ORAL DAILY, (Reported) Miscellaneous Medications Bupropion HCl (Bupropion Xl), 300 MG PO, (Reported) Estrogens,Conjugated (Premarin), 1.25 MG PO, (Reported) Patient History Healthcare decision maker Resuscitation status Advanced Directive on File Physical Exam Last 24 Hour Vital Signs Date Time Temp Pulse Resp B/P (MAP) Pulse Ox O2 Delivery O2 Flow Rate FiO2 05/17/20 04:00 97.5 75 20 128/64 (85) 97 05/17/20 00:00 97.5 76 18 137/62 (87) 96 05/16/20 21:08 99.1 05/16/20 21:00 Room Air 05/16/20 20:00 100.2 91 20 145/74 (97) 95 05/16/20 16:00 97.3 83 18 123/78 (93) 99 05/16/20 15:46 97.3 05/16/20 12:00 98.0 82 18 126/76 (93) 96 05/16/20 09:00 Room Air 05/16/20 08:00 97.7 86 18 129/73 (91) 95 Intake and Output 05/16/20 05/17/20 19:00 07:00 Intake Total 1000 ml 110.0 ml Output Total 5 ml Balance 995 ml 110.0 ml Intake IV Total 110.0 ml Other 1000 ml Output Stool Total 5 ml # Voids 3 # Bowel Movements 3 Laboratory Tests Test 05/16/20 06:35 White Blood Count 16.6 K/UL (4.8-10.8) H Red Blood Count 3.70 M/UL (4.20-5.40) L Hemoglobin 10.7 G/DL (12.0-16.0) L Hematocrit 33.6 % (37.0-47.0) L Mean Corpuscular Volume 91 FL (80-99) Mean Corpuscular Hemoglobin 29.0 PG (27.0-31.0) Mean Corpuscular Hemoglobin Concent 31.9 G/DL (32.0-36.0) L Red Cell Distribution Width 12.0 % (11.6-14.8) Platelet Count 550 K/UL (150-450) H Mean Platelet Volume 5.3 FL (6.5-10.1) L Neutrophils (%) (Auto) % (45.0-75.0) Lymphocytes (%) (Auto) % (20.0-45.0) Monocytes (%) (Auto) % (1.0-10.0) Eosinophils (%) (Auto) % (0.0-3.0) Basophils (%) (Auto) % (0.0-2.0) Differential Total Cells Counted 100 Neutrophils % (Manual) 79 % (45-75) H Lymphocytes % (Manual) 10 % (20-45) L Monocytes % (Manual) 10 % (1-10) Eosinophils % (Manual) 1 % (0-3) Basophils % (Manual) 0 % (0-2) Band Neutrophils 0 % (0-8) Platelet Estimate Adequate Platelet Morphology Normal Hypochromasia 1+ Anisocytosis 1+ Sodium Level 135 MMOL/L (136-145) L Potassium Level 4.9 MMOL/L (3.5-5.1) Chloride Level 102 MMOL/L (98-107) Carbon Dioxide Level 25 MMOL/L (21-32) Anion Gap 8 mmol/L (5-15) Blood Urea Nitrogen 24 mg/dL (7-18) H Creatinine 1.5 MG/DL (0.55-1.30) H Estimat Glomerular Filtration Rate 34.7 mL/min (>60) Glucose Level 97 MG/DL (74-106) Hemoglobin A1c 6.0 % (4.3-6.0) Calcium Level 8.4 MG/DL (8.5-10.1) L Phosphorus Level 3.5 MG/DL (2.5-4.9) Magnesium Level 2.1 MG/DL (1.8-2.4) Total Bilirubin 0.2 MG/DL (0.2-1.0) Aspartate Amino Transf (AST/SGOT) 26 U/L (15-37) Alanine Aminotransferase (ALT/SGPT) 18 U/L (12-78) Alkaline Phosphatase 225 U/L (46-116) H Total Protein 7.0 G/DL (6.4-8.2) Albumin 2.5 G/DL (3.4-5.0) L Globulin 4.5 g/dL Albumin/Globulin Ratio 0.6 (1.0-2.7) L Thyroid Stimulating Hormone (TSH) 2.070 uiU/mL (0.358-3.740) Microbiology Date/Time Source Procedure Growth Status 05/16/20 17:30 Stool Clostridium difficile Toxin Assay - Final Complete Height (Feet): 5 Height (Inches): 3.00 Weight (Pounds): 125 Medications Current Medications Medications (Trade) Dose Ordered Sig/Lyubov Route PRN Reason Start Time Stop Time Status Last Admin Dose Admin Acetaminophen (Tylenol) 650 mg Q4H PRN ORAL MILD PAIN/TEMP 05/16/20 19:45 06/15/20 19:44 05/16/20 20:11 Enoxaparin Sodium (Lovenox) 40 mg DAILY SUBQ 05/16/20 09:00 08/14/20 08:59 05/16/20 08:56 Famotidine (Pepcid) 40 mg DAILY ORAL 05/16/20 09:00 08/14/20 08:59 05/16/20 08:56 Hydromorphone HCl (Dilaudid) 0.5 mg Q4H PRN IVP for breakthrough pain 05/16/20 19:45 05/23/20 19:44 Iohexol (OMNIPAQUE-300 100ml) 100 ml NOW PRN INJ Radiology Procedure 05/15/20 13:45 05/17/20 13:33 Ketorolac Tromethamine (Toradol 30mg) 15 mg Q12H PRN IV Moderate Pain (Pain Scale 4-6) 05/16/20 19:50 05/21/20 19:49 Morphine Sulfate (Morphine Sulfate) 2 mg Q4H PRN IVP Severe Pain (Pain Scale 7-10) 05/16/20 19:50 05/23/20 19:49 05/16/20 21:44 Ondansetron HCl (Zofran) 4 mg Q4H PRN IVP Nausea & Vomiting 05/16/20 19:45 06/15/20 19:44 05/16/20 20:11 Piperacillin Sod/ Tazobactam Sod 3.375 gm/Sodium Chloride 110 ml @ 27.5 mls/hr EVERY 8 HOURS IVPB 05/16/20 15:00 05/21/20 14:59 05/17/20 05:27 Assessment/Plan Assessment/Plan: Heme/Onc Consultation MIKEY BLACK: Jose Armando Butler DR[facility] Abdominal masses DOS 05/17/2020 ID [id number] female presents to the ED c/o 06/05 in severity lower abdominal pain, bloating and tenderness with urgency x 2 weeks. pt. reports prior to onset she had been having diarrhea since . Pt. states she was seen by a GI specialist who did lab work and ultimately dx'd her with a UTI and placed her on 10 day course of Cipro. Pt. reports only finishing 8 days as when she followed up with urology they reported that the test was inconclusive and most likely contamination. Patient reports that she also has been receiving Botox injections in the bladder every 4 to 5 weeks. Patient states that she has an appointment for another injection next week. Patient denies dysuria. Patient reports she typically begins having urinary urgency. Patient denies fevers or chills, nausea or vomiting. She denies having watery loose bowel movements. Patient states that after taking Cipro her diarrhea did improve however she states last 2 days she has noticed that her stools been less formed. No other aggravating or relieving factors. Denies blood in the stool or black tarry stools. Pt. reports she was seen by her PCP today and instructed to come to ED for imaging as imaging was never performed for her current symptoms. She is also taking immodium PRN and hyoscyamine. 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 Patient History Past Medical History: see triage record Past Surgical History: none Now: No Reviewed Nursing Documentation: PMH: Agreed; PSxH: Agreed (Tiff Gallardo) Nursing Documentation-PMH Past Medical History: No History, Except For Review of Systems All Other Systems: negative except mentioned in HPI Physical Exam Vitals: reviewed, normal General: no apparent distress, alert, GCS 15 HEENT: bilateral eye normal inspection, bilateral eye PERRL Neck: full range of motion Resp: chest non-tender, lungs clear, normal breath sounds, speaking full sentences Cardiov: regular rate, rhythm Gastrointestinal: normal bowel sounds, soft, other - Lower abdomen is palpable , diffusely in lower abdomen but primarily midline. Genitourinary: normal inspection, no CVA tenderness Musculoskeletal: back normal, normal range of motion Neurologic: alert, motor strength/tone normal, oriented x3 Psychiatric: judgement/insight normal Labs: noted Imaging: CT Calcified masses within the pelvis as well as a calcified mass within the mid abdomen. Malignancy not excluded. Consider possible calcified peritoneal metastases (consider possible ovarian cancer metastases although additional etiologies to be considered). Correlation with clinical history and follow-up recommended. Some lesions may be amenable to percutaneous biopsy/sampling. Assessment and Recs # Pelvic mass with calcification, rule out metastatic cancer. We will need biopsy also to confirm and tumor markers for further evaluation. --> have also dw her re biopsy, its benefits --> international nurse onc eval if possible, may be at [facility] [place] --> tumor markers have been ordered # Anemia likely due to malignancy --> also has been given ivf --> no evidence of hemolysis --> no bleeding noted at this time --> hold off epo or iron # Leukocytosis, rule out sepsis. We will send blood cultures x2 and upgrade antibiotics to Zosyn, empirically pending culture --> wbc 12-->16 --> on zosyn # Urinary tract infection with air in the bladder and left ureteral hydronephrosis, rule out fistula. We will upgrade antibiotics to Zosyn. --> as per Dr. Leonard # Dvt ppx lovenox Appreciate consultation and Zbigniew Dupont RN, MD May 17, 2020 06:16
[2020-05-17] MEDS ORDERED: Lidocaine 1% Plain 30 ml INJ PRN (07:00)
--- NOTE | 2020-05-17 07:35 | NUR ---
HAND-OFF: Report given to AMIE Pedro. Plan of care endorsed.
--- NOTE | 2020-05-17 07:45 | NUR ---
NURSE NOTES: Received report from [facility], patient laying in supine position, alert and oriented, on room air, talking on telephone, bed in lowest position, call light within reach, side rails up x 3, bedside commode in place, in no apparent distress.
[2020-05-17 08:00] VITALS: BP 122/62
[2020-05-17] MEDS: Enoxaparin 40mg Inj SUBQ SCH (08:28)
[2020-05-17] MEDS: Morphine Sulfate 2mg/ml Inj(IV/IM USE ONLY) IVP PRN (08:29)
--- NOTE | 2020-05-17 11:19 | General Progress Note ---
Assessment/Plan Assessment/Plan: S: my abdominal pain is better O: seems comfortable, at the bed side PHYSICAL EXAMINATION: HEAD AND NECK: Atraumatic and normocephalic. CHEST: Clear to auscultation.HEART: S1, S2. Regular rate and rhythm. ABDOMEN: Protuberant, soft. Negative for rebound tenderness. MUSCULOSKELETAL: No gross focal motor deficit. NEUROLOGIC: The patient is awake, alert, and oriented x3. LABORATORY DATA and Meds are reconciled in the chart ASSESSMENT: 1. Acute on chronic Abdominal pain. 2. Sepsis 3. UTI. 4. Multiple abdominal mass, highly suspicious of malignancy. 5. Cystitis, highly suspicious for fistulization. 6. Abnormal liver lesion, suspicious of metastasis. PLAN OF CARE: Advance empirical abx Pending culture Oncology- ID- nephro notes reviewed Subjective Allergies: Coded Allergies: No Known Allergies (Unverified , 05/15/20) Objective Last 24 Hour Vital Signs Date Time Temp Pulse Resp B/P (MAP) Pulse Ox O2 Delivery O2 Flow Rate FiO2 05/17/20 08:59 97.5 05/17/20 08:00 98.1 75 18 122/62 (82) 97 05/17/20 04:00 97.5 75 20 128/64 (85) 97 05/17/20 00:00 97.5 76 18 137/62 (87) 96 05/16/20 21:08 99.1 05/16/20 21:00 Room Air 05/16/20 20:00 100.2 91 20 145/74 (97) 95 05/16/20 16:00 97.3 83 18 123/78 (93) 99 05/16/20 15:46 97.3 05/16/20 12:00 98.0 82 18 126/76 (93) 96 Intake and Output 05/16/20 05/17/20 19:00 07:00 Intake Total 1000 ml 137.5 ml Output Total 5 ml Balance 995 ml 137.5 ml Intake IV Total 137.5 ml Other 1000 ml Output Stool Total 5 ml # Voids 4 # Bowel Movements 4 Height (Feet): 5 Height (Inches): 3.00 Weight (Pounds): 125 Jose Armando Butler MD May 17, 2020 11:19
[2020-05-17 12:00] VITALS: BP 127/64
[2020-05-17] MEDS: OXYBUTYNIN 10 MG ORAL SCH ×2 (13:00→13:11)
--- NOTE | 2020-05-17 15:04 | Surgery Progress Note ---
Surgery Progress Note Subjective Additional Comments doing well states her contacts at [facility] are getting things moving for her to transfer no n/v/f/c oncology input noted pending markers Objective Last 24 Hour Vital Signs Date Time Temp Pulse Resp B/P (MAP) Pulse Ox O2 Delivery O2 Flow Rate FiO2 05/17/20 12:00 97.3 72 16 127/64 (85) 98 05/17/20 09:00 Room Air 05/17/20 08:59 97.5 05/17/20 08:00 98.1 75 18 122/62 (82) 97 05/17/20 04:00 97.5 75 20 128/64 (85) 97 05/17/20 00:00 97.5 76 18 137/62 (87) 96 05/16/20 21:08 99.1 05/16/20 21:00 Room Air 05/16/20 20:00 100.2 91 20 145/74 (97) 95 05/16/20 16:00 97.3 83 18 123/78 (93) 99 05/16/20 15:46 97.3 I&O Intake and Output 05/16/20 05/17/20 19:00 07:00 Intake Total 1000 ml 137.5 ml Output Total 5 ml Balance 995 ml 137.5 ml Intake IV Total 137.5 ml Other 1000 ml Output Stool Total 5 ml # Voids 4 # Bowel Movements 4 Cardiovascular: RSR Respiratory: clear Abdomen: soft, distended, non-tender, present bowel sounds, non-distended Extremities: no edema, no tenderness, no cyanosis Laboratory Tests Test 05/17/20 08:10 Carcinoembryonic Antigen Pending CA 125 Antigen Pending Plan Problems: (1) Abdominal mass Assessment & Plan: Patient not have stated history as per her of any abnormalities in her abdomen. States mainly diarrhea and cramping as stated in HPI. Denies any nausea vomiting fever chills. Is tolerating diet but has diarrhea which makes her concerned. Labs noted and reviewed. CT reviewed. I discussion with patient regarding CT findings and explained necessity of potential biopsy. There is no acute surgical intervention necessary at this time but further imaging and work-up is necessary given the significant amount of masses identified within the abdomen. Strong possibility metastatic disease. Patient states that she has care providers at [facility] and was recently contacted her friend in the chief of cardiothoracic surgery to get her transported for the remainder of her care there. From surgical standpoint she is safe for transfer. Does need further work-up and imaging and biopsy and follow-up but that can be done at [facility] or outpatient. pending tumor markers agree she would need biopsy but planned at [facility] at her request d/c planning There is dependent atelectasis noted in the lung bases. Heart is normal in size. There is no pericardial effusion. Partially imaged breast tissue is grossly symmetric. Hepatic contour is smooth. There is a 2 cm low-attenuation lesion in the right hepatic lobe with peripheral nodular enhancement most likely representing a hemangioma. A 1.4 cm low-attenuation lesion is noted at the left hepatic lobe which may represent a cyst versus hemangioma. Hepatic contour is smooth. Hepatic veins and portal veins appear patent. There are no CT evident gallstones or pericholecystic inflammatory changes. No biliary ductal dilatation. Spleen unremarkable in appearance. There is a 8mm indeterminate left adrenal nodule. Right kidney is malrotated. There is mild left-sided hydronephrosis without definitive obstructing stone. There is bladder wall thickening. Patient appears to be status post hysterectomy. There is marked abnormality in the pelvis with multiple confluent calcified masses, some which contain internal low attenuation components. Additionally there is a calcified extra luminal mass in the central abdomen, just above the level of the umbilicus, posterior and slightly inferior to the transverse colon which measures possibly 5 x 3.8 cm (axial image #42). There is no evidence of small bowel obstruction. No free intraperitoneal air. There is thickening of the wall the bladder with some punctate foci of gas within the bladder which may related to infection or potential fistulous connection the bladder. The abdominal aorta is normal in caliber. Some small mesenteric and retroperitoneal lymph nodes are noted. Nonspecific as to etiology. There is scoliosis and degenerative changes of the spine. No acute fracture identified. No destructive bone lesion. IMPRESSION: * Calcified masses within the pelvis as well as a calcified mass within the mid abdomen. Malignancy not excluded. Consider possible calcified peritoneal metastases (consider possible ovarian cancer metastases although additional etiologies to be considered). Correlation with clinical history and follow-up recommended. Some lesions may be amenable to percutaneous biopsy/sampling. * Status post hysterectomy. * Bladder wall thickening which may be related to underdistention or cystitis. Punctate focus of gas within the bladder. Possibility of fistulous connection to the bladder not excluded. * Mild left hydronephrosis without urinary tract stone. This is likely related to degree of left ureteral obstruction from the above-described calcified pelvic masses. * Low-attenuation liver lesions with imaging findings suggesting cysts or hemangiomas. Further characterization with ultrasound and/or MRI recommended given above-described findings concerning for malignancy. * 8 mm indeterminate left adrenal nodule. (2) UTI (urinary tract infection) (3) Pelvic mass (4) Leukocytosis Moody Mayer May 17, 2020 15:04
[2020-05-17 16:00] VITALS: BP 123/67
[2020-05-17] MEDS: AMPHETAMINE SALTS 20 MG ORAL SCH ×2 (17:25→17:32)
--- NOTE | 2020-05-17 18:31 | NUR ---
NURSE NOTES: Patient c/o having unusual stools, frequent small amount, states, "I think there may be blood." Visual inspection noted greenish/brownish hue, no amanda blood seen. Patient is concerned and frequently talks about her stools.
--- NOTE | 2020-05-17 18:52 | Infectious Diseases Prog Note ---
Assessment/Plan Problems: (1) UTI (urinary tract infection) Assessment & Plan: WITH AIR IN THE BLADDER AND LEFT URETER HYDRONEPHROSIS, URINE CULTURE is negative . will stop zosyn (2) Abdominal mass Assessment & Plan: rule out metastatic cancer may need biopsy from 1 of those masses to confirm (3) Pelvic mass Assessment & Plan: with calcification rule out metastatic cancer , will need biopsy to confirm and tumor markers recommend oncology eval (4) Leukocytosis Assessment & Plan: RULE OUT SEPSIS , BLOOD CULTURES 2 is pending , continue zosyn empirically pending blood culture Subjective Constitutional: Reports: no symptoms HEENT: Reports: no symptoms Respiratory: Reports: no symptoms Breasts: Reports: no symptoms Cardiovascular: Reports: no symptoms Gastrointestinal/Abdominal: Reports: diarrhea, bloating Genitourinary: Reports: no symptoms Neurologic: Reports: no symptoms Psychiatric: Reports: no symptoms Skin: Reports: no symptoms Endocrine: Reports: no symptoms Hematologic: Reports: no symptoms Musculoskeletal: Reports: no symptoms Allergies: Coded Allergies: No Known Allergies (Unverified , 05/15/20) Objective Vital Signs Last 24 Hour Vital Signs Date Time Temp Pulse Resp B/P (MAP) Pulse Ox O2 Delivery O2 Flow Rate FiO2 05/17/20 16:00 97.7 72 12 123/67 (85) 95 05/17/20 12:00 97.3 72 16 127/64 (85) 98 05/17/20 09:00 Room Air 05/17/20 08:59 97.5 05/17/20 08:00 98.1 75 18 122/62 (82) 97 05/17/20 04:00 97.5 75 20 128/64 (85) 97 05/17/20 00:00 97.5 76 18 137/62 (87) 96 05/16/20 21:08 99.1 05/16/20 21:00 Room Air 05/16/20 20:00 100.2 91 20 145/74 (97) 95 Height (Feet): 5 Height (Inches): 3.00 Weight (Pounds): 125 General Appearance: WD/WN, no acute distress HEENT: normocephalic, atraumatic, anicteric, mucous membranes moist, PERRL Respiratory/Chest: chest wall non-tender, lungs clear, normal breath sounds, no respiratory distress, no accessory muscle use Cardiovascular: normal peripheral pulses, normal rate, regular rhythm, no gallop/murmur, no JVD Abdomen: normal bowel sounds, soft, non tender, no organomegaly, non distended , no mass, no scars Extremities: no cyanosis, no clubbing Skin: no rash, no lesions, no ulcers Neurologic/Psychiatric: alert, oriented x 3, responsive Lymphatic: no neck adenopathy, no groin adenopathy Musculoskeletal: normal muscle bulk, no effusion Microbiology Date/Time Source Procedure Growth Status 05/16/20 17:30 Stool Clostridium difficile Toxin Assay - Final Complete 05/15/20 13:50 Urine,Clean Catch Urine Culture - Final Staphylococcus Sp Coag Neg Complete Laboratory Tests Test 05/17/20 08:10 Carcinoembryonic Antigen Pending CA 125 Antigen Pending Current Medications Medications (Trade) Dose Ordered Sig/Lyubov Route PRN Reason Start Time Stop Time Status Last Admin Dose Admin Acetaminophen (Tylenol) 650 mg Q4H PRN ORAL MILD PAIN/TEMP 05/16/20 19:45 06/15/20 19:44 05/16/20 20:11 Bupropion HCl (Wellbutrin XL) 300 mg DAILY ORAL 05/18/20 09:00 06/17/20 08:59 Enoxaparin Sodium (Lovenox) 40 mg DAILY SUBQ 05/16/20 09:00 08/14/20 08:59 05/17/20 08:28 Escitalopram Oxalate (Lexapro) 15 mg DAILY ORAL 05/18/20 09:00 06/17/20 08:59 Famotidine (Pepcid) 40 mg DAILY ORAL 05/16/20 09:00 08/14/20 08:59 05/17/20 08:26 Hydromorphone HCl (Dilaudid) 0.5 mg Q4H PRN IVP for breakthrough pain 05/16/20 19:45 05/23/20 19:44 Ketorolac Tromethamine (Toradol 30mg) 15 mg Q12H PRN IV Moderate Pain (Pain Scale 4-6) 05/16/20 19:50 05/21/20 19:49 Lidocaine HCl (Xylocaine 1% 30ml) 30 ml NOW PRN INJ Radiology Procedure 05/17/20 07:00 05/19/20 06:46 Morphine Sulfate (Morphine Sulfate) 2 mg Q4H PRN IVP Severe Pain (Pain Scale 7-10) 05/16/20 19:50 05/23/20 19:49 05/17/20 08:29 Multivitamins (Multivitamins) 1 tab DAILY ORAL 05/18/20 09:00 06/17/20 08:59 Ondansetron HCl (Zofran) 4 mg Q4H PRN IVP Nausea & Vomiting 05/16/20 19:45 06/15/20 19:44 05/16/20 20:11 Patient Own Medication (Patient's Own Med) 1 ea BID ORAL 05/17/20 18:00 06/16/20 17:59 Piperacillin Sod/ Tazobactam Sod 3.375 gm/Sodium Chloride 110 ml @ 27.5 mls/hr EVERY 8 HOURS IVPB 05/16/20 15:00 05/21/20 14:59 05/17/20 13:11 Jasen Leonard M.D. May 17, 2020 18:52
--- NOTE | 2020-05-17 19:36 | NUR ---
HAND-OFF: Report given to Vianey Saunders RN. Patient sitting up in bed, awake and alert, watchin television, on room air, no SOB, no c/o pain, call light within reach, bed in lowest position, IV patent in right wrist, wrapped with Kerlix, bedside commode at bedside, in no apparent distress.
--- NOTE | 2020-05-17 20:00 | NUR ---
NURSE NOTES: Received patient awake, alert, verbal, resting in bed, comfortable.
[2020-05-17 20:19] VITALS: BP 137/71
--- NOTE | 2020-05-17 21:36 | General Progress Note ---
Assessment/Plan Assessment/Plan: Assessment - Calcified pelvic masses Recommendations - CT guided FNA - If transferring to [facility], suggest doing FNA there - push po as tolerated - f/u tumor markers Subjective Allergies: Coded Allergies: No Known Allergies (Unverified , 05/15/20) Subjective above noted feels OK no new complaints Objective Last 24 Hour Vital Signs Date Time Temp Pulse Resp B/P (MAP) Pulse Ox O2 Delivery O2 Flow Rate FiO2 05/17/20 20:51 Room Air 05/17/20 20:19 98.2 78 18 137/71 (93) 96 05/17/20 16:00 97.7 72 12 123/67 (85) 95 05/17/20 12:00 97.3 72 16 127/64 (85) 98 05/17/20 09:00 Room Air 05/17/20 08:59 97.5 05/17/20 08:00 98.1 75 18 122/62 (82) 97 05/17/20 04:00 97.5 75 20 128/64 (85) 97 05/17/20 00:00 97.5 76 18 137/62 (87) 96 Intake and Output 05/16/20 05/17/20 19:00 07:00 Intake Total 1000 ml 137.5 ml Output Total 5 ml Balance 995 ml 137.5 ml Intake IV Total 137.5 ml Other 1000 ml Output Stool Total 5 ml # Voids 4 # Bowel Movements 4 Laboratory Tests 05/17/20 08:10: Carcinoembryonic Antigen [Pending], CA 125 Antigen [Pending] Height (Feet): 5 Height (Inches): 3.00 Weight (Pounds): 125 Objective NCAT supple CTA RR abd firm and fullness lower abdomen no edema Candy Meredith MD May 17, 2020 21:36
[2020-05-18 00:03] VITALS: BP 130/73
[2020-05-18 04:00] VITALS: BP 146/64
[2020-05-18] MEDS: Piperacillin/Tazobactam 3.375 GM in NS 110 ML IVPB SCH ×3 (04:56→22:00)
--- NOTE | 2020-05-18 07:12 | Hematology/Onc Progress Note ---
Assessment/Plan Assessment/Plan Assessment and Recs # Pelvic mass with calcification, rule out metastatic cancer. We will need biopsy also to confirm and tumor markers for further evaluation. --> have also dw her re biopsy, its benefits --> education research analyst onc eval if possible, may be at [facility] --> tumor markers have been ordered # Anemia likely due to malignancy --> also has been given ivf --> no evidence of hemolysis --> no bleeding noted at this time --> hold off epo or iron # Leukocytosis, rule out sepsis. We will send blood cultures x2 and upgrade antibiotics to Zosyn, empirically pending culture --> wbc 12-->16 --> on zosyn # Urinary tract infection with air in the bladder and left ureteral hydronephrosis, rule out fistula. We will upgrade antibiotics to Zosyn. --> as per Dr. Leonard # Dvt ppx lovenox Appreciate consultation and cecilia RN Subjective HEENT: Denies: no symptoms, eye pain, blurred vision, tearing, double vision, ear pain, ear discharge, nose pain, nose congestion, throat pain, throat swelling, mouth pain, mouth swelling, other Cardiovascular: Denies: no symptoms, chest pain, edema, irregular heart rate, lightheadedness, palpitations, syncope, other Respiratory: Denies: no symptoms, cough, shortness of breath, SOB with excertion, SOB at rest, sputum, wheezing, other Gastrointestinal/Abdominal: Denies: no symptoms, abdomen distended, abdominal pain, black stools, tarry stools, blood in stool, constipated, diarrhea, difficulty swallowing, nausea, poor appetite, poor fluid intake, rectal bleeding , vomiting, other Genitourinary: Denies: no symptoms, burning, discharge, frequency, flank pain, hematuria, incontinence, pain, urgency, other Endocrine: Denies: no symptoms, excessive sweating, flushing, intolerance to cold, intolerance to heat, increased hunger, increased thirst, increased urine, unexplained weight gain, unexplained weight loss, other Hematologic/Lymphatic: Denies: no symptoms, anemia, easy bleeding, easy bruising, adenopathy, other Allergies: Coded Allergies: No Known Allergies (Unverified , 05/15/20) Subjective 05/18 sleeping comfortably in am, confirmed ct biopsy order placed Objective Objective Current Medications Medications (Trade) Dose Ordered Sig/Lyubov Route PRN Reason Start Time Stop Time Status Last Admin Dose Admin Acetaminophen (Tylenol) 650 mg Q4H PRN ORAL MILD PAIN/TEMP 05/16/20 19:45 06/15/20 19:44 05/16/20 20:11 Bupropion HCl (Wellbutrin XL) 300 mg DAILY ORAL 05/18/20 09:00 06/17/20 08:59 Enoxaparin Sodium (Lovenox) 40 mg DAILY SUBQ 05/16/20 09:00 08/14/20 08:59 05/17/20 08:28 Escitalopram Oxalate (Lexapro) 15 mg DAILY ORAL 05/18/20 09:00 06/17/20 08:59 Famotidine (Pepcid) 40 mg DAILY ORAL 05/16/20 09:00 08/14/20 08:59 05/17/20 08:26 Hydromorphone HCl (Dilaudid) 0.5 mg Q4H PRN IVP for breakthrough pain 05/16/20 19:45 05/23/20 19:44 Ketorolac Tromethamine (Toradol 30mg) 15 mg Q12H PRN IV Moderate Pain (Pain Scale 4-6) 05/16/20 19:50 05/21/20 19:49 Lidocaine HCl (Xylocaine 1% 30ml) 30 ml NOW PRN INJ Radiology Procedure 05/17/20 07:00 05/19/20 06:46 Morphine Sulfate (Morphine Sulfate) 2 mg Q4H PRN IVP Severe Pain (Pain Scale 7-10) 05/16/20 19:50 05/23/20 19:49 05/17/20 08:29 Multivitamins (Multivitamins) 1 tab DAILY ORAL 05/18/20 09:00 06/17/20 08:59 Ondansetron HCl (Zofran) 4 mg Q4H PRN IVP Nausea & Vomiting 05/16/20 19:45 06/15/20 19:44 05/16/20 20:11 Patient Own Medication (Patient's Own Med) 1 ea BID ORAL 05/17/20 18:00 06/16/20 17:59 Piperacillin Sod/ Tazobactam Sod 3.375 gm/Sodium Chloride 110 ml @ 27.5 mls/hr EVERY 8 HOURS IVPB 6/20/20 15:00 05/21/20 14:59 05/18/20 04:56 Last 24 Hour Vital Signs Date Time Temp Pulse Resp B/P (MAP) Pulse Ox O2 Delivery O2 Flow Rate FiO2 05/18/20 04:00 97.7 72 18 146/64 (91) 96 05/18/20 00:03 98.0 70 18 130/73 (92) 95 05/17/20 20:51 Room Air 05/17/20 20:19 98.2 78 18 137/71 (93) 96 05/17/20 16:00 97.7 72 12 123/67 (85) 95 05/17/20 12:00 97.3 72 16 127/64 (85) 98 05/17/20 09:00 Room Air 05/17/20 08:59 97.5 05/17/20 08:00 98.1 75 18 122/62 (82) 97 05/17/20 04:00 97.5 75 20 128/64 (85) 97 05/17/20 00:00 97.5 76 18 137/62 (87) 96 05/16/20 21:08 99.1 05/16/20 21:00 Room Air 05/16/20 20:00 100.2 91 20 145/74 (97) 95 05/16/20 16:00 97.3 83 18 123/78 (93) 99 05/16/20 15:46 97.3 05/16/20 12:00 98.0 82 18 126/76 (93) 96 05/16/20 09:00 Room Air 05/16/20 08:00 97.7 86 18 129/73 (91) 95 Intake and Output 05/17/20 05/18/20 19:00 07:00 Intake Total 957.5 ml 137.5 ml Balance 957.5 ml 137.5 ml Intake IV Total 157.5 ml 137.5 ml Other 800 ml # Voids 4 # Bowel Movements 1 2 Labs Test 05/15/20 13:50 05/16/20 06:35 05/17/20 08:10 White Blood Count 12.1 K/UL (4.8-10.8) 16.6 K/UL (4.8-10.8) Red Blood Count 3.97 M/UL (4.20-5.40) 3.70 M/UL (4.20-5.40) Hemoglobin 11.4 G/DL (12.0-16.0) 10.7 G/DL (12.0-16.0) Hematocrit 37.1 % (37.0-47.0) 33.6 % (37.0-47.0) Mean Corpuscular Volume 93 FL (80-99) 91 FL (80-99) Mean Corpuscular Hemoglobin 28.8 PG (27.0-31.0) 29.0 PG (27.0-31.0) Mean Corpuscular Hemoglobin Concent 30.8 G/DL (32.0-36.0) 31.9 G/DL (32.0-36.0) Red Cell Distribution Width 12.0 % (11.6-14.8) 12.0 % (11.6-14.8) Platelet Count 607 K/UL (150-450) 550 K/UL (150-450) Mean Platelet Volume 5.0 FL (6.5-10.1) 5.3 FL (6.5-10.1) Neutrophils (%) (Auto) 81.2 % (45.0-75.0) % (45.0-75.0) Lymphocytes (%) (Auto) 11.8 % (20.0-45.0) % (20.0-45.0) Monocytes (%) (Auto) 5.5 % (1.0-10.0) % (1.0-10.0) Eosinophils (%) (Auto) 0.9 % (0.0-3.0) % (0.0-3.0) Basophils (%) (Auto) 0.5 % (0.0-2.0) % (0.0-2.0) Urine Color Pale yellow Urine Appearance Slightly cloudy Urine pH 5 (4.5-8.0) Urine Specific Gilbert 1.015 (1.005-1.035) Urine Protein 3+ (NEGATIVE) Urine Glucose (UA) Negative (NEGATIVE) Urine Ketones Negative (NEGATIVE) Urine Blood 4+ (NEGATIVE) Urine Nitrite Negative (NEGATIVE) Urine Bilirubin Negative (NEGATIVE) Urine Urobilinogen Normal MG/DL (0.0-1.0) Urine Leukocyte Esterase 3+ (NEGATIVE) Urine RBC 5-10 /HPF (0 - 2) Urine WBC Tntc /HPF (0 - 2) Urine Squamous Epithelial Cells Few /LPF (NONE/OCC) Urine Bacteria Few /HPF (NONE) Sodium Level 137 MMOL/L (136-145) 135 MMOL/L (136-145) Potassium Level 3.9 MMOL/L (3.5-5.1) 4.9 MMOL/L (3.5-5.1) Chloride Level 102 MMOL/L (98-107) 102 MMOL/L (98-107) Carbon Dioxide Level 25 MMOL/L (21-32) 25 MMOL/L (21-32) Anion Gap 10 mmol/L (5-15) 8 mmol/L (5-15) Blood Urea Nitrogen 23 mg/dL (7-18) 24 mg/dL (7-18) Creatinine 1.5 MG/DL (0.55-1.30) 1.5 MG/DL (0.55-1.30) Estimat Glomerular Filtration Rate 34.7 mL/min (>60) 34.7 mL/min (>60) Glucose Level 86 MG/DL (74-106) 97 MG/DL (74-106) Calcium Level 8.8 MG/DL (8.5-10.1) 8.4 MG/DL (8.5-10.1) Total Bilirubin 0.2 MG/DL (0.2-1.0) 0.2 MG/DL (0.2-1.0) Aspartate Amino Transf (AST/SGOT) 26 U/L (15-37) 26 U/L (15-37) Alanine Aminotransferase (ALT/SGPT) 20 U/L (12-78) 18 U/L (12-78) Alkaline Phosphatase 259 U/L (46-116) 225 U/L (46-116) C-Reactive Protein, Quantitative 4.7 mg/dL (0.00-0.90) Total Protein 7.5 G/DL (6.4-8.2) 7.0 G/DL (6.4-8.2) Albumin 2.7 G/DL (3.4-5.0) 2.5 G/DL (3.4-5.0) Globulin 4.8 g/dL 4.5 g/dL Albumin/Globulin Ratio 0.6 (1.0-2.7) 0.6 (1.0-2.7) Lipase 246 U/L (73-393) Differential Total Cells Counted 100 Neutrophils % (Manual) 79 % (45-75) Lymphocytes % (Manual) 10 % (20-45) Monocytes % (Manual) 10 % (1-10) Eosinophils % (Manual) 1 % (0-3) Basophils % (Manual) 0 % (0-2) Band Neutrophils 0 % (0-8) Platelet Estimate Adequate Platelet Morphology Normal Hypochromasia 1+ Anisocytosis 1+ Hemoglobin A1c 6.0 % (4.3-6.0) Phosphorus Level 3.5 MG/DL (2.5-4.9) Magnesium Level 2.1 MG/DL (1.8-2.4) Thyroid Stimulating Hormone (TSH) 2.070 uiU/mL (0.358-3.740) Height (Feet): 5 Height (Inches): 3.00 Weight (Pounds): 125 Objective Physical Exam Vitals: reviewed, normal General: no apparent distress, alert, GCS 15 HEENT: bilateral eye normal inspection, bilateral eye PERRL Neck: full range of motion Resp: chest non-tender, lungs clear, normal breath sounds, speaking full sentences Cardiov: regular rate, rhythm Gastrointestinal: normal bowel sounds, soft, other - Lower abdomen is palpable , diffusely in lower abdomen Genitourinary: normal inspection, no CVA tenderness Musculoskeletal: back normal, normal range of motion Neurologic: alert, motor strength/tone normal, oriented x3 Psychiatric: judgement/insight normal Zbigniew Schmitz MD May 18, 2020 07:12
--- NOTE | 2020-05-18 07:20 | NUR ---
NURSE NOTES: Received report from AMIE Winters. Patient is lying in hospital bed, AAO x 4, ambulatory with steady gait, on RA, with no s/s of respiratory distress at this time. Lungs CTA, abd sounds hypoactive. Pt has c/o cramping pain at abdominal area at 4/10. Skin intact. PIV on R wrist 22g running IV abx as ordered. Pt scheduled for CT guided biopsy today. Pt states that she wants to be transferred to [facility] as she mentions wanting Dr. Josef Segura at [facility] to accept her as a patient there. Will notify MD. Will continue POC.
--- NOTE | 2020-05-18 07:29 | NUR ---
HAND-OFF: Report given to Jorge Zapata RN.
[2020-05-18 08:00] VITALS: BP 140/76
--- NOTE | 2020-05-18 08:18 | NUR ---
NURSE NOTES: Notified Dr. Butler re patient's request to transfer to [facility]. Awaiting response. Will continue to f/u.
[2020-05-18] MEDS: Enoxaparin 40mg Inj SUBQ SCH (08:39)
[2020-05-18] MEDS: Ketorolac 30mg Inj IV PRN ×2 (08:41→22:40)
[2020-05-18] MEDS: AMPHETAMINE SALTS 20 MG ORAL SCH ×2 (08:53→18:00)
[2020-05-18] MEDS ORDERED: BuPROPion XL 150mg tab ORAL SCH (09:00)
--- NOTE | 2020-05-18 09:15 | NUR ---
NURSE NOTES: Received response from Dr. Butler. Ok to put in transfer order. Will carry out.
--- NOTE | 2020-05-18 10:04 | NUR ---
DISCHARGE PLANNING PATIENT HAS BEEN REFERRED TO [facility] PER MD ORDER P: [phone] F: [phone] Addendum: 05/18/20 at 1244 by JOHNNY PINON LVN LVN FOLLOW UP CALL MADE TO [facility]. S/W JUANA WHO CONFIRMED FINANCIALS HAVE BEEN VERIFIED AND PATIENT HAS BEEN MEDICALLY ACCEPTED FOR TRANSFER UNDER CARE OF DR ALAN PRITCHETT. [facility] WILL [place] [facility] [place] COORDINATE TRANSFER. ADVISED TO CALL PATIENT PLACEMENT @ [phone] OPTION 2, THEN OPTION 2 AGAIN FOR UPDATES ON TRANSFER STATUS.
--- NOTE | 2020-05-18 10:31 | General Progress Note ---
Assessment/Plan Assessment/Plan: S: my abdominal pain is same O: seems comfortable, at the bed side, wants to continue her care in outside facility PHYSICAL EXAMINATION: HEAD AND NECK: Atraumatic and normocephalic. CHEST: Clear to auscultation.HEART: S1, S2. Regular rate and rhythm. ABDOMEN: Protuberant, soft. Negative for rebound tenderness. MUSCULOSKELETAL: No gross focal motor deficit. NEUROLOGIC: The patient is awake, alert, and oriented x3. LABORATORY DATA and Meds are reconciled in the chart ASSESSMENT: 1. Acute on chronic Abdominal pain. 2. Sepsis 3. UTI. 4. Multiple abdominal mass, highly suspicious of malignancy. 5. Cystitis, highly suspicious for fistulization. 6. Abnormal liver lesion, suspicious of metastasis. PLAN OF CARE: Advance empirical abx Pending culture Oncology- ID- nephro notes reviewed she like to transfer her care to outside facility Subjective Allergies: Coded Allergies: No Known Allergies (Unverified , 05/15/20) Objective Last 24 Hour Vital Signs Date Time Temp Pulse Resp B/P (MAP) Pulse Ox O2 Delivery O2 Flow Rate FiO2 05/18/20 08:00 97.3 73 18 140/76 (97) 95 05/18/20 04:00 97.7 72 18 146/64 (91) 96 05/18/20 00:03 98.0 70 18 130/73 (92) 95 05/17/20 20:51 Room Air 05/17/20 20:19 98.2 78 18 137/71 (93) 96 05/17/20 16:00 97.7 72 12 123/67 (85) 95 05/17/20 12:00 97.3 72 16 127/64 (85) 98 Intake and Output 05/17/20 05/18/20 19:00 07:00 Intake Total 957.5 ml 137.5 ml Balance 957.5 ml 137.5 ml IV Total 157.5 ml 137.5 ml Other 800 ml # Voids 4 # Bowel Movements 1 2 Height (Feet): 5 Height (Inches): 3.00 Weight (Pounds): 125 Jose Armando Butler MD May 18, 2020 10:31
--- NOTE | 2020-05-18 10:32 | General Progress Note ---
Assessment/Plan Assessment/Plan: Assessment/Plan Assessment/Plan: Assessment - Calcified pelvic masses Recommendations - CT guided FNA - If transferring to [facility], suggest doing FNA there - push po as tolerated - f/u tumor markers Subjective Allergies: Coded Allergies: No Known Allergies (Unverified , 05/15/20) Objective Last 24 Hour Vital Signs Date Time Temp Pulse Resp B/P (MAP) Pulse Ox O2 Delivery O2 Flow Rate FiO2 05/18/20 08:00 97.3 73 18 140/76 (97) 95 05/18/20 04:00 97.7 72 18 146/64 (91) 96 05/18/20 00:03 98.0 70 18 130/73 (92) 95 05/17/20 20:51 Room Air 05/17/20 20:19 98.2 78 18 137/71 (93) 96 05/17/20 16:00 97.7 72 12 123/67 (85) 95 05/17/20 12:00 97.3 72 16 127/64 (85) 98 Intake and Output 05/17/20 05/18/20 19:00 07:00 Intake Total 957.5 ml 137.5 ml Balance 957.5 ml 137.5 ml IV Total 157.5 ml 137.5 ml Other 800 ml # Voids 4 # Bowel Movements 1 2 Height (Feet): 5 Height (Inches): 3.00 Weight (Pounds): 125 General Appearance: no apparent distress EENT: normal ENT inspection Neck: supple Cardiovascular: normal rate Respiratory/Chest: decreased breath sounds Abdomen: normal bowel sounds, non tender, soft Extremities: non-tender Ranjith Vogel MD May 18, 2020 10:32
[2020-05-18 11:57] LABS: BASOPHILS % (AUTO) 0.4 % (0.0-2.0); EOSINOPHILS % (AUTO) 0.8 % (0.0-3.0); HEMATOCRIT 32.1 % (37.0-47.0); LYMPHOCYTES % (AUTO) 9.5 % (20.0-45.0); MEAN CORPUSCULAR VOLUME 92 FL (80-99); MONOCYTES % (AUTO) 6.2 % (1.0-10.0); NEUTROPHILS % (AUTO) 83.2 % (45.0-75.0); PLATELET COUNT 500 K/UL (150-450); RED BLOOD COUNT 3.49 M/UL (4.20-5.40); RED CELL DISTRIBUTION WIDTH 12.1 % (11.6-14.8); WHITE BLOOD COUNT 17.4 K/UL (4.8-10.8)
[2020-05-18 12:00] VITALS: BP 121/78
[2020-05-18 12:22] LABS: ALANINE AMINOTRANSFERASE 29 U/L (12-78); ALBUMIN 2.3 G/DL (3.4-5.0); ALBUMIN/GLOBULIN RATIO 0.5 (1.0-2.7); ALKALINE PHOSPHATASE 257 U/L (46-116); ANION GAP 8 mmol/L (5-15); ASPARTATE AMINO TRANSFERASE 36 U/L (15-37); BILIRUBIN,TOTAL 0.3 MG/DL (0.2-1.0); BLOOD UREA NITROGEN 19 mg/dL (7-18); CALCIUM 8.5 MG/DL (8.5-10.1); CARBON DIOXIDE 25 MMOL/L (21-32); CHLORIDE 105 MMOL/L (98-107); CREATININE 1.4 MG/DL (0.55-1.30); SODIUM 138 MMOL/L (136-145)
--- NOTE | 2020-05-18 12:53 | NUR ---
DISCHARGE PLANNING CALL MADE TO [facility] PATIENT PLACEMENT @ [phone]. S/W JOSE ALFREDO WHO INFORMED THAT A BED IS ANTICIPATED FOR TODAY. REQUESTING COMPLETED DC SUMMARY TO BE FAXED TO [phone] PRIOR TO [facility] PROVIDING BED ASSIGNMENT. REQUESTING IMAGING ON CD AND COMPLETE COPY OF CHART TO BE SENT WITH PATIENT AT TIME OF TRANSFER. CHARGE NURSE TRISTON INFORMED.
--- NOTE | 2020-05-18 13:06 | NUR ---
NURSE NOTES: S/w Dr. Butler and confirmed DC summary will be completed ny 5PM today. Charge nurse made aware.
--- NOTE | 2020-05-18 13:34 | NUR ---
INSURANCE CLINICALS HAVE BEEN FAXED TO TARAH GARCIA P: [phone] F: [phone] REF# [id number]
[2020-05-18 14:10] LABS: INR 0.9 (0.9-1.1)
--- NOTE | 2020-05-18 15:16 | NUR ---
CASE MANAGEMENT:INITIAL REVIEW 05/16/20 65 YR OLD FEMALE FROM HOME CC;ABDOMINAL PAIN SI;COMPLICATED UTI. ABDOMINAL MASS. 98.1 83 20 132/67 98% ON RA WBC 12.1 PLT 607 BUN 23 CR 1.5 IS;IVF NS BOLUS ROCEPHIN IV MORPHINE IV TORADOL IV ZOFRAN IV ADMITTED TO MED SURG MED SURG STATUSWBC 16.6 DCP;PATIENT IS FROM HOME CASE MANAGEMENT:REVIEW 05/17/20 SI;SEPSIS. UTI. CYSTITIS. MULTIPLE ABDOMINAL MASS. LIVER LESION. 99.1 78 12 137/71 95% ON RA WBC 16.6 PLT 550 BUN 24 CR 1.5 ALK PHOS 225 ALB 2.5 IS;ZOSYN IV Q8 LOVENOX SUBQ Q12 DILAUDID IV Q4 TORADOL IV Q12 PRN MED SURG STATUS DCP;PATIENT IS FROM HOME CASE MANAGEMENT:REVIEW 05/18/20 SI;SEPSIS. UTI. CYSTITIS. MULTIPLE ABDOMINAL MASS. LIVER LESION. 98.2 77 18 146/64 95% ON RA WBC 17.4 PLT 500 BUN 19 CR 1.4 ALK PHOS 257 ALB 2.3 IS;ZOSYN IV Q8 LOVENOX SUBQ Q12 DILAUDID IV Q4 TORADOL IV Q12 PRN MED SURG STATUS DCP;PATIENT IS FROM HOME PLAN;TRANSFER PATIENT TO [facility] WHEN BED AVAILABLE UNDER CARE OF DR Robert PRITCHETT ACCEPTANCE FOR TRANSFER CONFIRMED W/TRANSFER CENTER @ [facility]
--- NOTE | 2020-05-18 15:53 | NUR ---
DISCHARGE PLANNING CALL RECEIVED FROM CARON @ [facility] PATIENT PLACEMENT TO INFORM A BED IS AVAILABLE FOR PATIENT PENDING RECEIPT OF DC SUMMARY. CALL MADE TO MEDICAL RECORDS IN RE TO DICTATED DC SUMMARY BY DR PEMBERTON. PER DARRYL, SHE WILL PUT A STAT REQUEST FOR REPORT TO BE TRANSCRIBED AND CALL THIS CM WITH UPDATE. DC SUMMARY TO BE FAXED TO [phone].
[2020-05-18 16:00] VITALS: BP 109/54
--- NOTE | 2020-05-18 17:30 | Discharge Summary ---
DATE OF ADMISSION: 05/15/2020 DATE OF DISCHARGE: 05/18/2020 SOURCE OF INFORMATION: The patient and EMR. ADMISSION DIAGNOSES: 1. Subacute abdominal pain. 2. Multiple abdominal mass, highly suspicious of malignancy. 3. Sepsis, differential diagnosis including peritonitis, colitis. 4. UTI. 5. Cystitis with highly suspicious of fistulization to the colon. 6. Abnormal liver lesions with suspicious for metastasis. DISCHARGE DIAGNOSES: 1. Subacute abdominal pain. 2. Multiple abdominal mass, highly suspicious of malignancy. 3. Sepsis, differential diagnosis including peritonitis, colitis. 4. UTI. 5. Cystitis with highly suspicious of fistulization to the colon. 6. Abnormal liver lesions with suspicious for metastasis. CURRENT HOSPITAL MEDICATIONS: Including Zosyn 3.375 three times a day, Wellbutrin XL 300 mg p.o. daily, Lovenox 40 subcutaneous daily, Lexapro 15 mg one p.o. daily, famotidine 40 mg daily, Dilaudid 0.5 mg IV q.4 hours as needed, ketorolac 15 mg IV q. 12 hours, morphine 2 mg IV q.4 hours p.r.n. severe pain, Zofran, multivitamin. IMAGING STUDIES: Abdominal CT scan, abdomen and pelvis CT dated May 15, 2020. CONSULTING SERVICES: 1. GI, Dr. Vogel. 2. Oncology, Dr.Roman Schmitz. 3. Infectious Diseases, Dr. Jasen Leonard. 4. General surgery, Dr. Moody Mayer. LABORATORY DATA: Dated May 18, 2020 shows WBC 17.4, hemoglobin 10, platelets 500. Sodium 138, creatinine 1.4. Alkaline phosphatase of 257. Urinalysis shows minimal wbc's counts. COURSE OF HOSPITALIZATION: The patient initiated on antibiotic treatment. Cultures, blood cultures up to this moment are negative. C. diff toxin is pending. The patient will proceed with the CT-guided biopsy today. The patient's pain and symptoms remain well managed using the above-mentioned medications. The patient's very involved in the care and present at the bedside most of the time. The patient remained afebrile. The patient demonstrated anxiety, within the understandable levels given the new diagnosis of potentially cancers. COMMENT: Please do not hesitate to contact the attending doctor, Dr. Butler at [phone] with any questions. Please do not hesitate to obtain additional medical records directly by contacting the medical record department at the hospital. Jose Armando Butler M.D. DR: Lane JOB#: [id number] CC:
--- NOTE | 2020-05-18 17:38 | NUR ---
STEAM METER READER NOTE DISCHARGE SUMMARY HAS BEEN FAXED TO [phone] AND [phone] CALL MADE TO [facility] PATIENT PLACEMENT @ [phone] OPT 2 THEN OPT 2 AGAIN. S/W CARON. SHE WILL CALL NURSING STATION WITH BED ASSIGNMENT UPON RECEIPT OF FAX. CHARGE NURSE TRISTON QIUROZ. [facility] SET ON WILL CALL WITH [facility] EXT [phone] PER CARON REQUEST AT [facility]. RN TO ACTIVATE WILL CALL UPON RECEIPT OF BED ASSIGNMENT.
--- NOTE | 2020-05-18 18:45 | NUR ---
NURSE NOTES: Pt had BM in BSC. Noted brownish secretions that appears like liquid stool which patients reports to have come from her urethra. Pt states that she feels like she has a fistula. Notified Dr. Butler. No new orders at this time. Pt is awaiting bed assignment at [facility] for transfer. Will endorse to next shift nurse.
--- NOTE | 2020-05-18 19:25 | NUR ---
HAND-OFF: Report given to AMIE Winters. POC endorsed.
[2020-05-18 19:57] VITALS: BP 113/57
--- NOTE | 2020-05-18 20:00 | NUR ---
NURSE NOTES: Received patient awake, alert, verbal, resting in bed without any complaints, with essentially normal vital signs.
--- NOTE | 2020-05-18 21:30 | Surgery Progress Note ---
Surgery Progress Note Subjective Additional Comments leukocytosis anemia tumor markers pending still with sediment in urine Objective Last 24 Hour Vital Signs Date Time Temp Pulse Resp B/P (MAP) Pulse Ox O2 Delivery O2 Flow Rate FiO2 05/18/20 20:11 Room Air 05/18/20 19:57 97.3 74 18 113/57 (75) 98 05/18/20 16:00 97.6 82 18 109/54 (72) 97 05/18/20 12:00 98.2 77 18 121/78 (92) 97 05/18/20 09:00 Room Air 05/18/20 08:00 97.3 73 18 140/76 (97) 95 05/18/20 04:00 97.7 72 18 146/64 (91) 96 05/18/20 00:03 98.0 70 18 130/73 (92) 95 I&O Intake and Output 05/17/20 05/18/20 19:00 07:00 Intake Total 957.5 ml 165.0 ml Balance 957.5 ml 165.0 ml IV Total 157.5 ml 165.0 ml Other 800 ml # Voids 4 # Bowel Movements 1 2 Cardiovascular: RSR Respiratory: clear Abdomen: soft, non-tender, present bowel sounds, other Extremities: no edema, no tenderness, no cyanosis Laboratory Tests Test 05/18/20 11:40 05/18/20 13:30 White Blood Count 17.4 K/UL (4.8-10.8) H Red Blood Count 3.49 M/UL (4.20-5.40) L Hemoglobin 10.0 G/DL (12.0-16.0) L Hematocrit 32.1 % (37.0-47.0) L Mean Corpuscular Volume 92 FL (80-99) Mean Corpuscular Hemoglobin 28.7 PG (27.0-31.0) Mean Corpuscular Hemoglobin Concent 31.1 G/DL (32.0-36.0) L Red Cell Distribution Width 12.1 % (11.6-14.8) Platelet Count 500 K/UL (150-450) H Mean Platelet Volume 5.4 FL (6.5-10.1) L Neutrophils (%) (Auto) 83.2 % (45.0-75.0) H Lymphocytes (%) (Auto) 9.5 % (20.0-45.0) L Monocytes (%) (Auto) 6.2 % (1.0-10.0) Eosinophils (%) (Auto) 0.8 % (0.0-3.0) Basophils (%) (Auto) 0.4 % (0.0-2.0) Sodium Level 138 MMOL/L (136-145) Potassium Level 4.0 MMOL/L (3.5-5.1) Chloride Level 105 MMOL/L (98-107) Carbon Dioxide Level 25 MMOL/L (21-32) Anion Gap 8 mmol/L (5-15) Blood Urea Nitrogen 19 mg/dL (7-18) H Creatinine 1.4 MG/DL (0.55-1.30) H Estimat Glomerular Filtration Rate 37.6 mL/min (>60) Glucose Level 79 MG/DL (74-106) Calcium Level 8.5 MG/DL (8.5-10.1) Total Bilirubin 0.3 MG/DL (0.2-1.0) Aspartate Amino Transf (AST/SGOT) 36 U/L (15-37) Alanine Aminotransferase (ALT/SGPT) 29 U/L (12-78) Alkaline Phosphatase 257 U/L (46-116) H Total Protein 6.7 G/DL (6.4-8.2) Albumin 2.3 G/DL (3.4-5.0) L Globulin 4.4 g/dL Albumin/Globulin Ratio 0.5 (1.0-2.7) L Prothrombin Time 10.2 SEC (9.30-11.50) Prothromb Time International Ratio 0.9 (0.9-1.1) Activated Partial Thromboplast Time 27 SEC (23-33) Plan Problems: (1) Abdominal mass Assessment & Plan: Patient not have stated history as per her of any abnormalities in her abdomen. States mainly diarrhea and cramping as stated in HPI. Denies any nausea vomiting fever chills. Is tolerating diet but has diarrhea which makes her concerned. Labs noted and reviewed. CT reviewed. I discussion with patient regarding CT findings and explained necessity of potential biopsy. There is no acute surgical intervention necessary at this time but further imaging and work-up is necessary given the significant amount of masses identified within the abdomen. Strong possibility metastatic disease. Patient states that she has care providers at [facility] and was recently contacted her friend in the chief of cardiothoracic surgery to get her transported for the remainder of her care there. From surgical standpoint she is safe for transfer. Does need further work-up and imaging and biopsy and follow-up but that can be done at [facility] or outpatient. pending tumor markers agree she would need biopsy but planned at [facility] at her request still with sediment in urine likely fistula d/c planning There is dependent atelectasis noted in the lung bases. Heart is normal in size. There is no pericardial effusion. Partially imaged breast tissue is grossly symmetric. Hepatic contour is smooth. There is a 2 cm low-attenuation lesion in the right hepatic lobe with peripheral nodular enhancement most likely representing a hemangioma. A 1.4 cm low-attenuation lesion is noted at the left hepatic lobe which may represent a cyst versus hemangioma. Hepatic contour is smooth. Hepatic veins and portal veins appear patent. There are no CT evident gallstones or pericholecystic inflammatory changes. No biliary ductal dilatation. Spleen unremarkable in appearance. There is a 8mm indeterminate left adrenal nodule. Right kidney is malrotated. There is mild left-sided hydronephrosis without definitive obstructing stone. There is bladder wall thickening. Patient appears to be status post hysterectomy. There is marked abnormality in the pelvis with multiple confluent calcified masses, some which contain internal low attenuation components. Additionally there is a calcified extra luminal mass in the central abdomen, just above the level of the umbilicus, posterior and slightly inferior to the transverse colon which measures possibly 5 x 3.8 cm (axial image #42). There is no evidence of small bowel obstruction. No free intraperitoneal air. There is thickening of the wall the bladder with some punctate foci of gas within the bladder which may related to infection or potential fistulous connection the bladder. The abdominal aorta is normal in caliber. Some small mesenteric and retroperitoneal lymph nodes are noted. Nonspecific as to etiology. There is scoliosis and degenerative changes of the spine. No acute fracture identified. No destructive bone lesion. IMPRESSION: * Calcified masses within the pelvis as well as a calcified mass within the mid abdomen. Malignancy not excluded. Consider possible calcified peritoneal metastases (consider possible ovarian cancer metastases although additional etiologies to be considered). Correlation with clinical history and follow-up recommended. Some lesions may be amenable to percutaneous biopsy/sampling. * Status post hysterectomy. * Bladder wall thickening which may be related to underdistention or cystitis. Punctate focus of gas within the bladder. Possibility of fistulous connection to the bladder not excluded. * Mild left hydronephrosis without urinary tract stone. This is likely related to degree of left ureteral obstruction from the above-described calcified pelvic masses. * Low-attenuation liver lesions with imaging findings suggesting cysts or hemangiomas. Further characterization with ultrasound and/or MRI recommended given above-described findings concerning for malignancy. * 8 mm indeterminate left adrenal nodule. (2) UTI (urinary tract infection) (3) Pelvic mass (4) Leukocytosis Moody Mayer May 18, 2020 21:30
--- NOTE | 2020-05-18 21:53 | Infectious Diseases Prog Note ---
Assessment/Plan Problems: (1) UTI (urinary tract infection) Assessment & Plan: suspect sterile pyuria , with air in the bladder and left ureter hydronephrosis , rule out fistula to the bladder . (2) Abdominal mass Assessment & Plan: rule out metastatic cancer may need biopsy from 1 of those masses to confirm (3) Pelvic mass Assessment & Plan: with calcification rule out metastatic cancer , will need biopsy to confirm and tumor markers recommend oncology eval (4) Leukocytosis Assessment & Plan: RULE OUT SEPSIS , BLOOD CULTURES 2 is negative but she recieved already ceftriaxone in ED the day before which may have affected her blood culture results will continue zosyn empirically pending final blood culture and since she still has leukocytosis Subjective Constitutional: Reports: no symptoms HEENT: Reports: no symptoms Respiratory: Reports: no symptoms Breasts: Reports: no symptoms Cardiovascular: Reports: no symptoms Gastrointestinal/Abdominal: Reports: diarrhea, bloating Genitourinary: Reports: dysuria Neurologic: Reports: no symptoms Psychiatric: Reports: no symptoms Skin: Reports: no symptoms Endocrine: Reports: no symptoms Hematologic: Reports: no symptoms Musculoskeletal: Reports: no symptoms Allergies: Coded Allergies: No Known Allergies (Unverified , 05/15/20) Objective Vital Signs Last 24 Hour Vital Signs Date Time Temp Pulse Resp B/P (MAP) Pulse Ox O2 Delivery O2 Flow Rate FiO2 05/18/20 20:11 Room Air 05/18/20 19:57 97.3 74 18 113/57 (75) 98 05/18/20 16:00 97.6 82 18 109/54 (72) 97 05/18/20 12:00 98.2 77 18 121/78 (92) 97 05/18/20 09:00 Room Air 05/18/20 08:00 97.3 73 18 140/76 (97) 95 05/18/20 04:00 97.7 72 18 146/64 (91) 96 05/18/20 00:03 98.0 70 18 130/73 (92) 95 Height (Feet): 5 Height (Inches): 3.00 Weight (Pounds): 125 General Appearance: WD/WN, no acute distress HEENT: normocephalic, atraumatic, anicteric, mucous membranes moist, PERRL Respiratory/Chest: chest wall non-tender, lungs clear, normal breath sounds, no respiratory distress, no accessory muscle use Cardiovascular: normal peripheral pulses, normal rate, regular rhythm, no gallop/murmur, no JVD Abdomen: normal bowel sounds, soft, non tender, no organomegaly, non distended , no mass, no scars Genitourinary: normal external genitalia Extremities: no cyanosis, no clubbing Skin: no rash, no lesions, no ulcers Neurologic/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: 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0 G/DL (12.0-16.0) L Hematocrit 32.1 % (37.0-47.0) L Mean Corpuscular Volume 92 FL (80-99) Mean Corpuscular Hemoglobin 28.7 PG (27.0-31.0) Mean Corpuscular Hemoglobin Concent 31.1 G/DL (32.0-36.0) L Red Cell Distribution Width 12.1 % (11.6-14.8) Platelet Count 500 K/UL (150-450) H Mean Platelet Volume 5.4 FL (6.5-10.1) L Neutrophils (%) (Auto) 83.2 % (45.0-75.0) H Lymphocytes (%) (Auto) 9.5 % (20.0-45.0) L Monocytes (%) (Auto) 6.2 % (1.0-10.0) Eosinophils (%) (Auto) 0.8 % (0.0-3.0) Basophils (%) (Auto) 0.4 % (0.0-2.0) Sodium Level 138 MMOL/L (136-145) Potassium Level 4.0 MMOL/L (3.5-5.1) Chloride Level 105 MMOL/L (98-107) Carbon Dioxide Level 25 MMOL/L (21-32) Anion Gap 8 mmol/L (5-15) Blood Urea Nitrogen 19 mg/dL (7-18) H Creatinine 1.4 MG/DL (0.55-1.30) H Estimat Glomerular Filtration Rate 37.6 mL/min (>60) Glucose Level 79 MG/DL (74-106) Calcium Level 8.5 MG/DL (8.5-10.1) Total Bilirubin 0.3 MG/DL (0.2-1.0) Aspartate Amino Transf (AST/SGOT) 36 U/L (15-37) Alanine Aminotransferase (ALT/SGPT) 29 U/L (12-78) Alkaline Phosphatase 257 U/L (46-116) H Total Protein 6.7 G/DL (6.4-8.2) Albumin 2.3 G/DL (3.4-5.0) L Globulin 4.4 g/dL Albumin/Globulin Ratio 0.5 (1.0-2.7) L Prothrombin Time 10.2 SEC (9.30-11.50) Prothromb Time International Ratio 0.9 (0.9-1.1) Activated Partial Thromboplast Time 27 SEC (23-33) Current Medications Medications (Trade) Dose Ordered Sig/Lyubov Route PRN Reason Start Time Stop Time Status Last Admin Dose Admin Acetaminophen (Tylenol) 650 mg Q4H PRN ORAL MILD PAIN/TEMP 05/16/20 19:45 06/15/20 19:44 05/16/20 20:11 Bupropion HCl (Wellbutrin XL) 300 mg DAILY ORAL 05/18/20 09:00 06/17/20 08:59 05/18/20 08:40 Enoxaparin Sodium (Lovenox) 40 mg DAILY SUBQ 05/16/20 09:00 08/14/20 08:59 05/18/20 08:39 Escitalopram Oxalate (Lexapro) 15 mg DAILY ORAL 05/18/20 09:00 06/17/20 08:59 05/18/20 08:40 Famotidine (Pepcid) 40 mg DAILY ORAL 05/16/20 09:00 08/14/20 08:59 05/18/20 08:40 Hydromorphone HCl (Dilaudid) 0.5 mg Q4H PRN IVP for breakthrough pain 05/16/20 19:45 05/23/20 19:44 Ketorolac Tromethamine (Toradol 30mg) 15 mg Q12H PRN IV Moderate Pain (Pain Scale 4-6) 05/16/20 19:50 05/21/20 19:49 05/18/20 08:41 Lidocaine HCl (Xylocaine 1% 30ml) 30 ml NOW PRN INJ Radiology Procedure 05/17/20 07:00 05/19/20 06:46 Morphine Sulfate (Morphine Sulfate) 2 mg Q4H PRN IVP Severe Pain (Pain Scale 7-10) 05/16/20 19:50 05/23/20 19:49 05/17/20 08:29 Multivitamins (Multivitamins) 1 tab DAILY ORAL 05/18/20 09:00 06/17/20 08:59 05/18/20 08:40 Ondansetron HCl (Zofran) 4 mg Q4H PRN IVP Nausea & Vomiting 05/16/20 19:45 06/15/20 19:44 05/16/20 20:11 Patient Own Medication (Patient's Own Med) 1 ea BID ORAL 05/17/20 18:00 06/16/20 17:59 05/18/20 08:53 Piperacillin Sod/ Tazobactam Sod 3.375 gm/Sodium Chloride 110 ml @ 27.5 mls/hr EVERY 8 HOURS IVPB 05/16/20 15:00 05/21/20 14:59 05/18/20 15:01 Jasen Leonard M.D. May 18, 2020 21:53
--- NOTE | 2020-05-18 22:04 | NUR ---
NURSE NOTES: Patient is ready for transfer to [facility]. Spoke with Zovi-Santana RN, gave report to her, and she asked to keep patient's IV access. Left message to her regarding transfer. Awaiting ambulance.
--- NOTE | 2020-05-19 00:17 | NUR ---
NURSE NOTES: Patient transferred to [facility] by ambulance with essentially normal vital signs.
--- NOTE | 2020-05-19 11:58 | NUR ---
*-* INSURANCE *-* UPDATED CLINICALS AND REVIEWS HAVE BEEN FAXED TO: TARAH GARCIA P: [phone] F: [phone] REF# [id number]
--- NOTE | 2020-05-21 12:29 | NUR ---
*-* INSURANCE *-* COMPLETE RECORDS FOR THIS STAY HAVE BEEN RE-FAXED TO: TARAH SWEET P: [phone] F: [phone] REF# [id number]
== END 2020-05-19 | disposition short-term general hospital (02) | DRG 872 ==
LOC: EMR 13:30 → 4E 17:57 → EDBEDREQ 20:24
DX: A41.9 Sepsis, unspecified organism (principal); N13.30 Unspecified hydronephrosis; N39.0 Urinary tract infection, site not specified; C79.89 Secondary malignant neoplasm of other specified sites; R10.9 Unspecified abdominal pain; R65.10 Systemic inflammatory response syndrome (SIRS) of non-infectious origin without acute organ dysfunction; N30.90 Cystitis, unspecified without hematuria; K76.9 Liver disease, unspecified; D64.89 Other specified anemias
CPT/HCPCS: 36415; 74177; 80053; 81003; 82378; 83036; 83690; 83735; 84100; 84443; 85007; 85025; 85610; 85730; 86140; 86304; 87040; 87086; 87324; 96361; 96365; 96375; 99285; J2405; J7030